=== PATIENT | female | born 1940 | race Caucasian/White ===

== ENCOUNTER 2021-07-28 08:24 | Emergency (ER) | payer OTHER ==
--- OUTSIDE RECORDS SUMMARY | 2021-07-28 08:27 | XMS REPORT | Continuity of Care Document ---
:1940 Author Organization [facility] t Address [address] [place] [address] Care Team Providers Name Role Phone Asked, Pcp Primary Care Physician Unavailable Juanis Saldivar MD Attending Clinician Kaylin Chin MD Attending Clinician Nenita Kay MD Attending Clinician Elly ROJAS Attending Clinician Martha Mendoza Attending Clinician Unavailable Colton RN Attending Clinician Unavailable Sienna Gandhi PA-C Attending Clinician Mishel Attending Clinician [phone] Rashida VALIENTE Attending Clinician Unavailable Provider Attending Clinician YARIEL Admitting Clinician Unavailable Payers Payer Name Policy Type Policy Number Effective Date Expiration Date S ource Problems Condition Condition Condition Status Onset Resolution Last Treating Co mments Source Name Details Category Date Date Treatment Clinician Date Ileus, Ileus, Disease Active Methodi postoperat postoperat 6-24 [facility] walter walter 00:00: Hospita 00 l Acute on Acute on Disease Active Metho di chronic chronic 6-23 st respirator respirator 00:00: Ho spita y failure y failure 00 l with with hypoxia hypoxia 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 Added automatic ally from request for surgery [id number] PMB PMB Disease Active Overview: Method i (postmenop (postmenop 04-[address] ausal ausal 00:00: g of this Hospita bleeding) bleeding) 00 note l might be different from the original. Added automatic ally from request for surgery [id number] Class 3 Class 3 Disease Active Overview: Meth juana severe severe 04-[address] obesity obesity 00:00: g of this Hospi ta due to due to 00 note l excess excess might be calories calories different with with from the serious serious original. comorbidit comorbidit Added y and body y and body automatic mass index mass index ally from (BMI) of (BMI) of request 50.0 to 50.0 to for 59.9 in 59.9 in surgery adult adult [id number] Essential Essential Disease Active Overview: Methodi hypertensi hypertensi 04-[address] on on 00:00: g of this Hospita 00 note l might be different from the original. Added automatic ally from request for surgery [id number] Hypothyroi Hypothyroi Disease Active Overview : Methodi dism dism 04-[address] 00:00: g of this Hospita 00 note l might be different from the original. 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 Added automatic ally from request for surgery [id number] Cyst of Cyst of Disease Active Overview: Meth juana left ovary left ovary 04-[address] 00:00: g of this Hospita 00 note l might be different from the original. Added automatic ally from request for surgery [id number] Pain due Pain due Disease Active 2018-11 Metho di to total to total 12-18 right knee right knee 00:00: Ho spita replacemen replacemen 00 l t t Allergies, Adverse Reactions, Alerts Allergy Allergy Status Severity Reaction(s) Onset Inactive Treating Comm ents Source Name Type Date Date Clinician Clarence Cramer Active Hives Method i in ty to 12-20 st adverse 00:00: Hospita reaction 00 l s to drug Family History Family Member Diagnosis Comments Start Date Stop Date Source Natural father Cancer [facility] Natural father Heart disease [facility] Natural mother Alzheimer's disease [facility] Social History Social Habit Start Date Stop Date Quantity Comments Source Tobacco use and 2021-05-06 2021-05-06 Never used [facility] 00:00:00 00:00:00 Hospital Alcohol intake 2021-05-06 2021-05-06 Lifetime [facility] 00:00:00 00:00:00 non-drinker Hospital (finding) Sex Ass[birth year] At [birth year] F [facility] 00:00:00 00:00:00 [facility] Smoking Status Start Date Stop Date Source Never smoker [facility] Medications Ordered Filled Start Stop Current Ordering Indication Dosage Frequency Signature Comments Components Source Medication Medication Date Date Medication? Clinician (SIG) Name Name diclofenac 2020- No 1{tbl} QD Take 1 Me thodi (VOLTAREN) 05-[address] 50 MG EC 01:28: 00:00 mouth Hospita tablet 56 :00 daily. l CALCIUM Yes Take by Methodi ACETATE [address] ORAL 01:28: Hospita 55 l aspirin Yes 81mg Take 81 mg Meth juana (ECOTRIN) [address] 81 MG 01:28: Hospita enteric 55 l coated tablet vit Yes Q.5D 2 (two) Methodi C/E/Zn/adraina 6-[address] r/lutein/ze 01:28: day. Hospit a axan 55 l (PRESERVISI ON AREDS-2 ORAL) acetaminoph Yes Take by Met hodi en with 05-[address] codeine 01:28: needed. Hospita (TYLENOL-CO 55 l DEINE #3 ORAL) levothyroxi 2020- No 50ug QD Take 1 Met hodi ne 05-13 tablet (50 st (SYNTHROID) 00:00: 04:59 mcg total) Hospita 50 mcg 00 :00 by mouth l tablet daily for 30 days. lisinopriL 2020- No 20mg QD Take 1 Meth juana (PRINIVIL) 05-13 tablet (20 st 20 mg 00:00: 04:59 mg total) Hospit a tablet 00 :00 by mouth l daily for 30 days. polyethylen 2020- No 17g QD Take 17 g Methodi e glycol 05-[address] (MIRALAX) 00:00: 00:00 daily for Ho spita 17 gram 00 :00 30 days. l packet polyethylen 2020- No 17g QD Take 17 g Methodi e glycol 05-[address] (MIRALAX) 00:00: 00:00 daily for Ho spita 17 gram 00 :00 30 days. l packet polyethylen 2020- No 17g QD Take 17 g Methodi e glycol 05-[address] (MIRALAX) 00:00: 00:00 daily for Ho spita 17 gram 00 :00 30 days. l packet lisinopriL 2020- No 20mg QD Take 1 Meth juana (PRINIVIL) 05-13 tablet (20 st 20 mg 00:00: 00:00 mg total) Hospit a tablet 00 :00 by mouth l daily for 30 days. levothyroxi 2020- No 50ug QD Take 1 Met hodi ne 05-13- tablet (50 st (SYNTHROID) 00:00: 00:00 mcg total) Hospita 50 mcg 00 :00 by mouth l tablet daily for 30 days. levothyroxi 2020- No 50ug QD Take 1 Met hodi ne 05-13- tablet (50 st (SYNTHROID) 00:00: 00:00 mcg total) Hospita 50 mcg 00 :00 by mouth l tablet daily for 30 days. lisinopriL 20mg QD Take 1 Meth juana (PRINIVIL) 05-13 tablet (20 st 20 mg 00:00: 00:00 mg total) Hospit a tablet 00 :00 by mouth l daily for 30 days. polyethylen 17g QD Take 17 g Methodi e glycol 05-[address] (MIRALAX) 00:00: 00:00 daily for Ho spita 17 gram 00 :00 30 days. l packet pravastatin No 40mg QD Take 1 Met hodi (PRAVACHOL) 05-12 tablet (40 s t 40 mg 00:00: 04:59 mg total) Hospit a tablet 00 :00 by mouth l nightly for 30 days. pravastatin No 40mg QD Take 1 Met hodi (PRAVACHOL) 05-12 tablet (40 s t 40 mg 00:00: 00:00 mg total) Hospit a tablet 00 :00 by mouth l nightly for 30 days. pravastatin No 40mg QD Take 1 Met hodi (PRAVACHOL) 05-12 tablet (40 s t 40 mg 00:00: 00:00 mg total) Hospit a tablet 00 :00 by mouth l nightly for 30 days. pravastatin No 40mg QD Take 1 Met hodi (PRAVACHOL) 05-12 tablet (40 s t 40 mg 00:00: 00:00 mg total) Hospit a tablet 00 :00 by mouth l nightly for 30 days. vitamins 2020- Take by Metho di A,C,E-zinc- 05-[address] copper 18:53: 00:00 Hospita 14,320-226- 33 :00 l 200 unit-mg-uni t capsule cholecalcif 1000U QD Take 1,000 Methodi dionne, 05-[address] vitamin D3, 18:52: 00:00 mouth Hosp nanci 50 mcg 27 :00 daily. l (2,000 unit) capsule capsule diclofenac- Yes 1{tbl} Q.03819948 Take 1 Methodi misoprostoL 04-[id number] (ARTHROTEC 00:00: 3D mouth 3 Hosp nanci 50) 50-200 00 (three) l mg-mcg EC times a tablet day as needed (pain post-op). traMADol 2018-11- No Methodi (ULTRAM) 50 12-12 05-04 st mg tablet 00:00: 00:00 Hospita 00 :00 l metoprolol 2018-11 Yes 25mg QD Take 25 mg M ethodi succinate 12-[address] XL 00:00: daily. Hospita (TOPROL-XL) 00 l 25 mg 24 hr tablet levothyroxi 2018-11 Yes Method i ne 11-29 st (SYNTHROID) 00:00: Hospit a 50 mcg 00 l tablet pravastatin 2018-11 Yes Method i (PRAVACHOL) 11-21 st 40 MG 00:00: Hospita tablet 00 l lisinopril 2018-11 Yes Methodi (PRINIVIL) 007 st 20 mg 00:00: Hospita tablet 00 l Vital Signs Vital Name Observation Time Observation Value Comments Source Systolic blood 2021-05-12 21:29:21 120 mm[Hg] [facility] pressure Diastolic blood 2021-05-12 21:29:21 58 mm[Hg] [facility] pressure Heart rate 2021-05-12 21:29:21 73 /min [facility] Body temperature 2021-05-12 21:29:21 36.06 [facility] Oxygen saturation in 2021-05-12 21:29:21 97 /min [facility] Arterial blood by Pulse oximetry Respiratory rate 2021-05-12 20:18:00 18 /min [facility] Body weight 2021-05-07 10:16:11 135.172 kg [facility] BMI 2021-05-07 10:16:11 56.31 kg/m2 [facility] Body height 2021-05-04 11:33:00 154.9 cm [facility] Procedures Procedure Date / Time Performing Clinician Source Performed XR CHEST 1 VW PORTABLE 2021-05-12 14:49:29 Lala Valenzuela [facility] XR CHEST 1 VW PORTABLE 2021-05-10 [facility] 2021-05-09 20:52:00 [facility] [place] ESTIMATED GFR 2021-05-09 20:52:00 Tonya Gandhi [facility] [place] HC COMPLETE BLD COUNT 2021-05-09 20:51:00 Tonya Gandhi [facility] W/AUTO DIFF [place] XR ABDOMEN 1 VW 2021-05-08 18:47:59 Tonya Gandhi [facility] [place] XR CHEST 1 PORTABLE 2021-05-08 16:53:13 [facility] COMPLETE [facility]LD [facility] 2021-05-08 10:45:00 Yariel [facility] W/AUTO DIFF COMPREHENSIVE METABOLIC 2021-05-08 10:45:00 Yariel [facility] PANEL ESTIMATED GFR 2021-05-08 10:45:[address] [facility] XR ABDOMEN 1 2021-05-07 18:01:01 Tonya Gandhi [facility]ital [place] XR ABDOMEN 1 2021-05-07 14:09:45 Tonya Gandhi [facility] [place] [facility] ANGIOGRAM PE CHEST 2021-05-06 [facility] 2021-05-06 14:45:00 Yariel [facility] HC COMPLETE BLD COUNT 2021-05-06 14:43:00 Yariel [facility] W/AUTO DIFF COMPREHENSIVE METABOLIC 2021-05-06 14:43:00 [facility]FR 2021-05-06 [facility]:43[facility] 2021-05-04 16:36:00 Yariel [facility] FL AN ELECTIVE ENDOTRACHEAL 2021-05-04 13:07:00 Melinda Kay [facility] AIRWAY XI ROBOTIC ASSISTED 2021-05-04 12:46:[address] [facility] LAPAROSCOPIC HYSTERCETOMY W/ BSO XI ROBOTIC ASSISTED 2021-05-04 12:46:00 Simi Chin [facility] LAPAROSCOPIC VENTRAL HERNIA Kaylin ABO AND RH CONFIRMATION 2021-05-04 12:00:00 Yariel [facility] POC GLUCOSE 2021-05-04 11:53:[address] [facility] ECG PRE/POST OP 2021-05-01 19:29:25 Ervin Sanabriasse [facility] ospital TYPE AND SCREEN 2021-05-01 18:42:[address] [facility] COMPREHENSIVE METABOLIC 2021-05-01 18:42:00 Yariel [facility] PANEL HC COMPLETE BLD COUNT 2021-05-01 18:42:00 Yariel [facility] W/AUTO DIFF HEMOGLOBIN A1C 2021-05-01 18:42:00 Natasha Sanabria [facility] ospital ESTIMATED GFR 2021-05-01 18:42:[address] [facility] CARCINOEMBRYONIC ANTIGEN 2021-03-30 15:04:00 Tonya Gandhi [facility] ([facility] [place] CANCER ANTIGEN 125 2021-03-30 15:04:00 Oksana [facility] CT CHEST WO CONTRAST 2021-03-26 00:00:00 Tonya Gandhi [facility] MAMMO EXTERNAL STUDY 2021-03-24 14:20:00 Provider, Historical [facility] SURGICAL PATHOLOGY REQUEST 2021-03-17 18:29:00 Oksana [facility] MISCELLANEOUS REFERRAL TEST 2021-03-17 17:00:00 Liz Castanon [facility] CT ABDOMEN PELVIS W 2021-02-25 00:00:00 Provider, [facility] CONTRAST Plan of Care Planned Activity Planned Date Details Comments Source Future Scheduled Test Hepatitis C screening [facility] (procedure) [code = 452604781] Future Scheduled Test SHINGLES VACCINES (#1) [facility] [code = SHINGLES VACCINES (#1)] Future Scheduled Test 65+ PNEUMOCOCCAL [facility] VACCINE (1 of 1 - PPSV23) [code = 65+ PNEUMOCOCCAL VACCINE (1 of 1 - PPSV23)] Future Scheduled Test INFLUENZA VACCINE [code [facility] = INFLUENZA VACCINE] Encounters Start End Encounter Admission Attending Care Care Encounter Source Date/Time Date/Time Type Type Clinicians Facility Department ID 2021-06-09 2021-06-09 Telephone Yariel 1.2.840.1 [id number] Methodi 00:00:00 00:00:[address] [facility] 3.430.2.7 Hospit a .3.271208 l .8 2021-06-03 2021-06-03 Telephone Giuseppe 1.2.840.1 [id number] Methodi 14:25:04 15:01:20 Consult Simi 61161.1.[address] Kaylin 3.430.2.7 Hospit a .3.270310 l .8 2021-06-03 2021-06-03 Travel 1.2.840.1 1.2.643.867 [id number] Methodi 00:00:00 00:00:[address] 3.430.2.7 0.2.7.3.698 Ho spita .3.203631 084.8 l .8 2021-06-03 2021-06-03 Outpatient [facility] [id number] [address] [place] 00:00:00 00:00:00 SIMI [address] 2021-06-01 2021-06-01 Telephone Yariel 1.2.840.1 [id number] 2099 [id number] Methodi 00:00:00 00:00:[address] Mohamed 3.430.2.7 Hospit a .3.077778 l .8 2021-05-19 2021-05-19 Telephone Yariel 1.2.840.1 [id number] 2099 [id number] Methodi 00:00:00 00:00:[address] [facility] 3.430.2.7 Hospit a .3.440624 l .8 2021-05-04 2021-05-12 [facility], 1.2.840.1 [id number] Methodi 05:40:00 20:10:00 Encounter Tarrik 91808.1.[address] [facility] 3.430.2.7 Hospit a .3.411480 l .8 2021-05-04 2021-05-12 Inpatient [facility] 021 [id number] [place] 00:00:00 00:00:[address] 2021-05-04 2021-05-04 Anesthesia Melinda Kay Nenita 1.2.840.1 [id number] Methodi 07:45:00 13:10:00 Event Natasha Sanabria 03775.1.[address] 3.430.2.7 Hospit a .3.965938 l .8 2021-05-04 2021-05-04 Surgery [facility], 1.2.840.1 [id number] Methodi 07:45:00 11:25:[address] [facility] 3.430.2.7 Hospit a .3.020276 l .8 2021-05-01 2021-05-01 Pre-Admiss [facility], 1.2.840.1 [id number] Methodi 13:22:34 14:22:34 ion Tarrik 49215.1.[address] Testing Mohamed 3.430.2.7 Hospit a .3.768870 l .8 2021-05-01 2021-05-01 Travel 1.2.840.1 1.2.285.264 [id number] [id number] Methodi 00:00:00 00:00:[address] 3.430.2.7 0.2.7.3.698 Ho spita .3.927145 084.8 l .8 2021-05-01 2021-05-01 [facility]patient [facility] [id number] [address] [place] 00:00:00 00:00:00 TARRIK [address] 2021-04-30 2021-04-30 Prep for Reji, 1.2.840.1 [id number] Methodi 00:00:00 00:00:00 Surgery Frannie Thomas 67156.1.1 [address] 3.430.2.7 Hospit a .3.343572 l .8 2021-04-29 2021-04-29 Telephone Segura, 1.2.840.1 [id number] 2099 [id number] Methodi 00:00:00 00:00:[address] 3.430.2.7 Hospit a .3.034241 l .8 2021-04-29 2021-04-29 Prep for Reji, 1.2.840.1 [id number] Methodi 00:00:00 00:00:00 Surgery Frannie Thomas 67409.1.1 072 s t 3.430.2.7 Hospit a .3.334833 l .8 2021-04-28 2021-04-28 Office Chin, 1.2.840.1 [id number] Methodi 13:06:02 14:02:10 Visit Simi 13131.1.[address] [place]lin 3.430.2.7 Hospit a .3.635642 l .8 2021-04-28 2021-04-28 Travel 1.2.840.1 1.2.114.814 6388 [id number] Methodi 00:00:00 00:00:[address] 3.430.2.7 0.2.7.3.698 Ho spita .3.531283 084.8 l .8 2021-04-28 2021-04-28 Outpatient CHIN, [facility] [id number] [place] 00:00:00 00:00:[address] SIMI [address] 2021-04-24 2021-04-24 Hospital Yariel, 1.2.840.1 [id number] Methodi 13:23:34 23:59:00 Encounter Tarrik 31711.1.[address] [facility] 3.430.2.7 Hospit a .3.501730 l .8 2021-04-24 2021-04-24 Outpatient YARIEL, [facility] [id number] [address] [place] 00:00:00 00:00:00 TARRIK [address] 2021-04-22 2021-04-22 [facility], 1.2.840.1 [id number] Methodi 16:19:33 23:59:00 Encounter Tarrik 75403.1.[address] [facility] 3.430.2.7 Hospit a .3.198433 l .8 2021-04-22 2021-04-22 [facility], 1.2.840.1 [id number] Methodi 16:07:01 16:18:00 Encounter Tarrik [address]2100.1.[address] [facility] 3.430.2.7 Hospit a .3.632411 l .8 2021-04-22 2021-04-22 Clinical Yariel, 1.2.840.1 [id number] Methodi 14:53:28 16:08:29 Support Tarrik 83413.1.[address] [facility] 3.430.2.7 Hospit a .3.215052 l .8 2021-04-22 2021-04-22 Travel 1.2.840.1 1.2.032.014 [id number] [id number] Methodi 00:00:00 00:00:[address] 3.430.2.7 0.2.7.3.698 Ho spita .3.586568 084.8 l .8 2021-04-22 2021-04-22 [facility] [id number] [place] 00:00:00 00:00:00 TARRIK [address] 2021-04-22 2021-04-22 [facility] [id number] [place] 00:00:00 00:00:[address] TARRI[address] 2021-04-22 2021-04-22 Outpatient [facility], [facility] [id number] [address] [place] 00:00:00 00:00:00 TARRIK [address] 2021-04-15 2021-04-15 Prep for Colton, 1.2.840.1 [id number] Methodi 00:00:00 00:00:00 Surgery Shannan 69733.1.[address] 3.430.2.7 Hospit a .3.329443 l .8 2021-03-31 2021-03-31 Telephone Oksana, 1.2.840.1 [id number] 2099 [id number] Methodi 00:00:00 00:00:[address] [place] 3.430.2.7 Hosp nanci .3.488738 l .8 2021-03-30 2021-03-30 Outpatient Florentino, [facility] [id number] c-2 00:00:00 00:00:00 Saira [id number]-bdce-4 [id number] 958C30 2021-03-30 2021-03-30 Outpatient Florentino, [facility] [id number] a-d 00:00:00 00:00:00 Saira [id number] 2021-03-30 2021-03-30 Outpatient Florentino, [facility] [id number] 6-2 00:00:00 00:00:00 Saira [id number] 958C30 2021-03-27 2021-03-27 Telephone Segura, 1.2.840.1 [id number] Methodi 00:00:00 00:00:[address] 3.430.2.7 Hospit a .3.666838 l .8 2021-03-24 2021-03-24 Telephone Segura, 1.2.840.1 [id number] 2099 [id number] Methodi 00:00:00 00:00:[address] 3.430.2.7 Hospit a .3.758152 l .8 2021-03-24 2021-03-24 Telephone Yariel 1.2.840.1 [id number] Methodi 00:00:00 00:00:00 Macro Aribianca 40942.1.[address] [place] 3.430.2.7 Hospit a .3.144345 l .8 2021-03-24 2021-03-24 Abstract Oksana, 1.2.840.1 [id number] Methodi 00:00:00 00:00:[address] [place] 3.430.2.7 Hosp nanci .3.469263 l .8 2021-03-23 2021-03-23 Orders Oksana, 1.2.840.1 [id number] Methodi 00:00:00 00:00:00 Only Tonya 07812.1.[address] [place] 3.430.2.7 Hosp nanci .3.640200 l .8 2021-03-17 2021-03-17 Office Oksana 1.2.840.1 [id number] Methodi 11:05:45 15:08:53 Visit Tonya 67286.1.[address] [place] 3.430.2.7 Hosp nanci .3.582299 l .8 2021-03-17 2021-03-17 Lab Tonya Gandhi 1.2.840.1 [id number] Methodi 13:15:17 13:20:17 Simon Saldivar 45240.1.[address] 3.430.2.7 Hospit a .3.075540 l .8 2021-03-17 2021-03-17 [facility] [id number] [place] 00:00:00 00:00:[address] TONYA [address] 2021-03-17 2021-03-17 Travel 1.2.840.1 1.2.194.469 [id number] Methodi 00:00:00 00:00:[address] 3.430.2.7 0.2.7.3.698 spita .3.605327 084.8 l .8 2021-03-17 2021-03-17 Outpatient OKSANA, [facility] [id number] [address] [place] [address] 00:00:00 00:00:00 TONYA [address] 2021-03-13 2021-03-13 Telephone Yessi Field 1.2.840.1 [id number] Methodi 00:00:00 00:00:[address] 3.430.2.7 Hospit a .3.565167 l .8 2021-03-12 2021-03-12 Outpatient [facility] [id number] 9-2 00:00:00 00:00:00 Saira [id number] 958C30 2021-02-25 2021-02-25 Orders Provider, 1.2.840.1 [id number] Methodi 00:00:00 00:00:00 Only Historical 17353.1.1 184 s t 3.430.2.7 Hospit a .3.683683 l .8 2021-02-16 2021-02-16 Outpatient [facility] [id number] b-2 00:00:00 00:00:00 Saira [id number] 958C30 2021-02-04 2021-02-04 Outpatient [facility] [id number] 5-2 00:00:00 00:00:00 Saira [id number] 958C30 2020-11-10 2020[facility]11-10 [facility] [id number] [facility] 2020-09-10 2020-09-10 [facility] [id number] [facility] 2020-08-11 2020-08-11 [facility] [id number] [facility] Results Test Description Test Time Test Comments Results Result Comments Source Surgical pathology request 2021-05-14 20:00:00 Test Item Value Reference Range Interpretation Comme nts Case number (test code = 8745910) [id number] Surgical pathology report (test code = See link below for PDF Lab R eport 2251) Result status (test code = 2253846) This is Final Report for [id number] [id number] 15:29:16 Examination: XR CHEST 1 VW PORTABLE Clinical history: sob Comparison: 05/10/2021 IMPRESSION: Minimal bilateral lower lung atelectasis appears unchanged. No pneumothoraces are identified. There are no apparent pleural effusions. The cardiomediastinal silhouette and the remainder of the chest appear essentially unchanged. [id number] Interface, Radiology Results 05/12/2021 10:32 AM CDT Examination: XR CHEST 1 PORTABLEClinical history: sobComparison: 05/10/2021IMPRESSION: Minimal bilateral lower lung atelectasis appears unchanged. No pneumothoraces are identified. There are no apparent pleural effusions.The cardiomediastinal silhouette and the remainder of the chest appear essentially unchanged.[id number]domen 1 [id number] 20:56:34 EXAMINATION: XR ABDOMEN 1 CLINICAL HISTORY: post op ileus COMPARISON: None. IMPRESSION: Improving gaseous distention of the stomach and colon consistent with improving ileus. There are residual gaseous distended and mildly dilated loops of colon measuring up to 8 cm in diameter. [id number]-[id number] Interface, Radiology Results 05/08/2021 3:59 PM CDT EXAMINATION: XR ABDOMEN 1 CLINICAL HISTORY: post op ileusCOMPARISON: None.IMPRESSION: Improving gaseous distention of the stomach and colon consistent with improving ileus. There are residual gaseous distended and mildly dilated loops of colon measuring up to 8 cm in diameter.[facility]-[id number] HospitalCT Angiogram Pe Chest 2021-05-06 16:07:22EXAMINATION: CT ANGIOGRAM PE CHEST HISTORY: Respiratory failure () TECHNIQUE: CT angiogram of the chest were performed following intravenous administration of iodinated contrast. Computerized reformatted images and 3-D MIP images were also obtained and archived (CT pulmonary embolus protocol).CT imaging was performed with iterative reconstruction techniques and/or automated exposure control to reduce radiation dose. COMPARISON: Outside CT dated 03/26/2021. CTA FINDINGS: Study quality moderately diminished by suboptimal contrast bolus timing and motion artifact. No pulmonary embolism to level of segmental arteries. There are a few questionable filling defects in the subsegmental vessels which cannot be distinguished from artifact (e.g. apical RUL, series 5, image 41). OTHER : Pulmonary:Patient is imaged in expiration. No pneumonia or focal suspicious lesion. Symmetric patchy mosaic attenuation in central distribution. Minimal septal line thickening. More substantial mild atelectasis related to effusions. Pleural: Trace bilateral effusions. No nodularity. No pneumothorax.. Cardiovascular: Upper limit of normal size. No pericardial effusion. Moderate calcified CAD. Mild mitral annular calcification. Mild calcification of the greater thoracic vasculature. No thoracic aortic aneurysm.Mediastinum/Nodes: No thoracic lymphadenopathy. Thickened thoracic esophagus. Musculoskeletal: No acute or aggressive-appearing osseous lesion. Multilevel degenerative spinal change and advanced shoulder arthropathy.. Upper abdomen: Borderline hepatic steatosis. = = = = = = = = = = = = = = = = = = = == = = = = = = = = IMPRESSION: 1.Technically limited study.2.No pulmonary embolism to the level of the segmental vessels.3.Nonspecific faint lung opacities which may be physiologic (patient in expiration) versus early pulmonary edema.4.Trace pleural effusions and associated mild atelectasis.5.Thickened appearance of esophagus, may correspond to esophagitis. [id number] Interface, Radiology Results Incoming - 05/06/2021 11:10 AM CDT EXAMINATION: CT ANGIOGRAM PE CHESTHISTORY: Respiratory failure () TECHNIQUE: CT angiogram of the chest were performed following intravenous administration of iodinated contrast. Computerized reformatted images and 3-D MIP images were also obtained and archived (CT pulmonary embolus protocol). CT imaging was performed with iterative reconstruction techniques and/or automated exposure control toreduce radiation dose.COMPARISON: Outside CT dated 03/26/2021.CTA FINDINGS: Study quality moderatelydiminished by suboptimal contrast bolus timing and motion artifact. No pulmonary embolism to level of segmental arteries. There are a few questionable filling defects in the subsegmental vessels which cannot be distinguished from artifact (e.g. apical RUL, series 5, image 41).OTHER : Pulmonary: Patient is imaged in expiration. No pneumonia or focal suspicious lesion. Symmetric patchy mosaic attenuation in central distribution. Minimal septal line thickening. More substantial mild atelectasis related to effusions.Pleural: Trace bilateral effusions. No nodularity. No pneumothorax..Cardiovascular: Upper limit of normal size. No pericardial effusion. Moderate calcified CAD. Mild mitral annular calcification. Mild calcification of the greater thoracic vasculature. No thoracic aortic aneurysm.Mediastinum/Nodes: No thoracic lymphadenopathy. Thickened thoracic esophagus.Musculoskeletal: No acute or aggressive-appearing osseous lesion. Multilevel degenerative spinal change and advanced shoulder arthropathy..Upper abdomen: Borderline hepatic steatosis.= = = = = = = = = = = = = = = = = = = = = = = = = == = =IMPRESSION: 1.Technically limited study.2.No pulmonary embolism to the level of the segmental vessels.3.Nonspecific faint lung opacities which may be physiologic (patient in expiration) versus early pulmonary edema.4.Trace pleural effusions and associated mild atelectasis.5.Thickened appearance of esophagus, may correspond to esophagitis.[facility] [place]-[id number] HospitalAirway 2021-05-04 13:07:00Melinda Kay MD 05/04/2021 9:03 AMAirway Date/Time: 05/04/2021 8:07 AM Location: OR Performed by: anesthesiologistAnesthesiologist: Melinda Kay MDAuthorized by: Melinda Kay MD Urgency: ElectiveDifficult Airway: No Preoxygenated with 100% O2: Yes C-spine Precautions Maintained Throughout: Yes Mask Ventilation: Easy maskFinal Airway Type: Endotracheal airwayFinal Endotracheal Airway: ETTCuffed: Yes Technique Used: Direct laryngoscopyInsertion Site: OralBlade Type:MillerLaryngoscope Blade/Videolaryngoscope Blade Size: 2ETT Size (mm): 7.0Cuff at minimum occlusion pressure: Yes Measured from: LipsETT to Lips (cm): 22Placement Verified by: CO2 detection and direct visualization Laryngoscopic view: Grade IIa - partial view of glottisRapid Sequence Induction (RSI): No Modified RSI: No Number of Attempts at Approach: 1[facility] confirmation 2021-05-04 12:38:00 Test Item Value Reference Range Interpretation Comments ABO grouping (test code = 883-9) B Rh type (test code = 71374-0) POS [facility] [id number] 12:04:41 Test Item Value Reference Range Interpretation Comments POC glucose (test code 118 mg/dL 65-99 H Opera tor Name: = 31006-8) Arpita Mathis ID : [id number] able: RN Notified Lab Interpretation Abnormal (test code = 93717-1) [facility]/Post [id number] 17:51:44 Test Item Value Reference Range Interpretation Comments Ventricular rate (test code = 253) Atrial rate (test code = 255) FL interval (test code = 266) QRSD interval (test code = 260) QT interval (test code = 264) QTC interval (test code = 265) P axis 1 (test code = 267) QRS axis 1 (test code = 268) T wave axis (test code = 270) EKG impression (test Normal sinus code = 273) rhythm-Incomplete right bundle branch block-Left anterior fascicular block-Abnormal ECG-No previous ECGs available-Electronical ly Signed By Jc HOWE, Sylvia ([id number]) on 05/03/2021 12:51:42 PM [facility]Type and [id number] 21:33:00 Test Item Value Reference Range Interpretation Comments ABO grouping (test code = 883-9) B Rh type (test code = 68391-1) POS Antibody screen (gel) (test code = NEG 890-4) [facility] CenterMiscellaneous referral [id number] 18:53:46 Test Item Value Reference Range Interpretation Comments Misc test name ARUP MLH1 PROMOTER (test code = 2566) Misc test SEE COMMENT MLH1 Promoter result (test Methylation, Pa raffin code = 1730) [facility] test code 2164620 MLH1 Promoter Methylation 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 T his result has been reviewed and ap proved by Marie martinez M.D. TEST INFOR MATION: MLH1 Promoter Methylation, Ramez pabon MLH1 methylatio n is common in spora dic microsatellite unstable tumors , like colorectal canc er and endometrial can cer, and rarely occu rs in Eric syndrome (hereditary non-polyposis c olon cancer or HNPCC ). Therefore, the presence of MLH 1 methylation sug gests that the tumor is sporadic and no t associated with Eric syndrome. Howev er, since there hav e been rare reports of Eric syndrome-associ ated MLH1 methylatio n, all results should be interpreted wit hin the clinical contex t. The lack of MLH1 methylation in a mismatch repair deficient tumor suggests that i t may be associated w ith Eric syndrome, and germline evalua tion is suggested. Fin ally, low level MLH1 methylation is not reported as pos itive, since it does n ot correlate with MLH1 inactivation an d microsatellite instability. METHODOLOGY: DN A is isolated from t umor tissue microdis sected from prepared s lides. DNA is treated with sodium bisulfit e, followed by amplification o f a segment of the MLH1 promoter region using methylation spe cific real-time PCR. The MLH1 methylatio n level is calculated b y comparison to t he amplification o f a reference gene. LIMITATIONS: Methylation at locations other than those covered b y the primers and pro bes will not be det ected. Results of this test must always be interpreted wit hin the clinical contex t and other relevant data, and should not be used alone for a monalisa gnosis of malignancy. This test is not int ended to detect minim al residual diseas e. ANALYTICAL SENSITIVITY: Methylation lev els below 10 percen t are reported as neg ative. This test was developed and i ts performance characteristics determined by [facility] [employer]. I t has not been cleare d or approved by the [place] Food and Drug Administration. This test was perfor med in a CLIA certifie d laboratory and is intended for cl inical purposes. - - - - - - - - - - - - - - - - - - - - - - - - - - - - - - Block ID [id number] A2 - - - - - - - - - - - - - - - - - - - -Order commentsMLH1 Pr omoter Methylation, Paraffin-ENDOME TRIAL BIOPSYARUP TEST #[id number] MLH1 P ROMOTER METHYLATION, [id number] (A2)DOS 021 ======= ======= Test performed by:[address] 841 08 LUCI (test code -ENDOMETRIAL = LUCI) BIOPSYARUP TEST #[id number] MLH1 PROMOTER METHYLATION, [id number] (A2)DOS 03/17/2021 [facility] HospitalCarcinoembryonic antigen (CEA)2021-03-31 17:54:00 Test Item Value Reference Range Interpretation Comments CEA (test 1.9 ng/mL See Note: Reference Range : code = Non-Smoker: <2. 5Smoker: 2038-6) <5.0 This test was performed using the Siemens chemiluminescen t method. Values obtained fromdifferent a ssay methods cannot be usedinterchange ably. CEA levels, reg ardless ofvalue, should not be interpreted as absoluteevidenc e of the presence or abs ence of disease. LUCI (test FASTING:YES code = LUCI) FASTING: YES RAC (test Performing code = RAC) Organization Information: Site ID: [id number] [facility] Address: [address] [place] [address] Director: Kvng Ludwig [facility] FallsCancer antigen [id number] 17:54:00 Test Item Value Reference Interpretation Comments Range CA 125 14 U/mL <35 This test was performed (test code using the [facility] an = 19723-9) CoulterChemilum inescent method. Values obtained fromdifferent a ssay methods cannot be usedinterchange ably. CA 125 levels, regardl ess ofvalue, should not be i nterpreted as absoluteevidenc e of the presence or abs ence of disease. LUCI (test FASTING:YES code = FASTING: YES LUCI) RAC (test Performing code = Organization RAC) Information: Site ID: [id number] [facility] Address: [address] [place] [address] Director: Dr. Kvng Ludwig [facility]
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
[2021-07-28 18:32] VITALS: BP 161/62; TEMP 98.1
[2021-07-28 18:34] VITALS: O2SAT 98
== END 2021-07-28 17:39 | disposition home or self-care (01) ==
LOC: ER 08:24
DX: R09.02 Hypoxemia (principal); E66.9 Obesity, unspecified; I10 Essential (primary) hypertension; Z99.81 Dependence on supplemental oxygen
CPT/HCPCS: 99283

== ENCOUNTER → 2023-11-10 | Emergency (ER) | payer OTHER ==
[~2023-11-10] MED LIST: NA CHLORIDE 0.9% 500 ML ONE; PANTOPRAZOLE 40 MG INJ ONE; SMZ./TMP. 800/160 MG TABLET ONE
[2023-11-10 11:55] LABS: Absolute Lymphocytes (CBC) 0.9 K/uL (0.7-4.9); Hematocrit 38.1 % (36.0-45.0); Lymphocytes % 7.3 % (15.3-44.8); MCV 86.6 fL (80-100); MPV 7.3 fL (7.6-11.3); Platelets 314 thou/uL (152-406)
[2023-11-10 12:41] LABS: Albumin 2.7 g/dL (3.4-5.0); Bilirubin Total 0.3 mg/dL (0.2-1.0); Potassium 3.6 mEq/L (3.5-5.1); Protein, Total 7.3 g/dL (6.4-8.2)
--- NOTE | 2023-11-10 13:22 | RAD REPORT ---
EXAM DESCRIPTION: CTAbdomen Pelvis W Contrast - 11/10/2023 1:07 pm CLINICAL HISTORY: ABD PAIN COMPARISON: No comparisons TECHNIQUE: CT of the abdomen and pelvis was performed. All CT scans are performed using dose optimization technique as appropriate and may include automated exposure control or mA/KV adjustment according to patient size. FINDINGS: Lower chest: Mosaic lung attenuation the lung bases . Coronary artery calcifications. Card iomegaly. Liver: Mild intrahepatic biliary duct dilatation. Focal fat along the falciform ligament. No suspicio us liver masses. Biliary: Cholecystectomy. Extrahepatic biliary duct dilatation is likely related to the postcholecyst ectomy state. Stomach: No significant focal abnormality. Duodenum: No significant focal abnormality. Pancreas: No significant abnormality. Spleen: No significant abnormality. Adrenal: No suspicious lesions. Kidney/ureter: No hydronephrosis. No renal calculi. Retroperitoneum: No retroperitoneal adenopathy. Vascular: No aneurysm. Bowel: Mild to moderate formed stool within the colon. Diverticulosis is present. There is some inspi ssated stool in the sigmoid with mild hyperemia of the sigmoid mesocolon.. The rectal wall is mildly thickened. Peritoneum: No ascites or free air. Bladder: Grossly unremarkable. Reproductive: Hysterectomy Bones: No acute fracture. Anterolisthesis of L4 on L5. Other: n/a IMPRESSION: Suspected colitis at the sigmoid colon and rectum. Probable constipation.
--- NOTE | 2023-11-10 13:31 | EDPHYS ---
Physician Documentation [facility] Name: Jennifer Blake Age: 82 yrs Sex: Female : 1940 Arrival Date: 11/10/2023 Time: 10:49 Bed [id number] Private MD: ED Physician Vazquez Solomon HPI: 11/10 11:04 This 82 yrs old Female presents to ER via EMS with complaints of rectal ec2 bleeding. 11:04 Patient arrives today for evaluation of rectal bleeding. Patient reports that she had ec2 woken up and noted blood on the sheets. Patient reports some abdominal pain, no nausea or vomiting. Reports no history of hemorrhoids, denies any history of rectal bleeding. Denies any liver pathology. Patient reports no straining with bowel movements. Patient denies any urinary complaints.. Historical: - Allergies: 11:04 PENICILLINS; ph - PMHx: 11:04 home O2; Hypercholesterolemia; Hypertensive disorder; Thyroid problem; ph - Immunization history:: Adult Immunizations unknown. - Social history:: Smoking status: Patient denies any tobacco usage or history of. ROS: 11:04 Constitutional: as per hpi ec2 Exam: 11:04 Constitutional: GEN: NAD Head: atraumatic Eyes: EOMI Ears: External ears are ec2 normal. CV: regular rate LUNGS: no respiratory distress ABD: non-distended, obese, nontender, no guarding, nonrigid. : Soft brown stool noted. SKIN: no evidence of rashes MSK: no evidence of trauma NEURO: moves all extremities equally Vital Signs: 11:01 BP 127 / 71; Pulse 61; Resp 18; Temp 97.8; Pulse Ox 94% on R/A; Weight 147.42 kg; ph Height 5 ft. 1 in. ; Pain 5/10; 14:17 BP 118 / 79; Pulse 61; Resp 18; Temp 97.1; Pulse Ox 96% on R/A; ph 11:01 Body Mass Index 61.41 (147.42 kg, 154.94 cm) ph 11:01 Pain Scale: Adult ph MDM: 11:01 Patient medically screened. ec2 11:04 Data reviewed: vital signs. ED course: Patient arrives today for evaluation of blood on ec2 the sheets when she woke up. Examination remarkable for well-appearing nontoxic individual is in no acute distress who has a minimally tender abdomen on examination. Will obtain lab work, give the patient Protonix, obtain CT imaging. Currently considering process such as GI bleeding, intra-abdominal infection, UTI.. 12:49 ED course: Metabolic profile is reassuring. Lipase within normal ranges. . ec2 13:23 ED course: CT imaging shows colitis, this is likely the source of patient's rectal ec2 bleeding. Patient is otherwise hemodynamically stable with appropriate blood counts. I will discharge her to home and follow-up with a GI doctor. . 11/10 11:02 Order name: CBC with Diff; Complete Time: 12:13 ec2 11/10 11:02 Order name: CMP; Complete Time: 12:49 ec2 11/10 11:02 Order name: Lipase; Complete Time: 12:49 ec2 11/10 11:02 Order name: CT Abd/Pelvis - IV Contrast Only; Complete Time: 13:23 ec2 11/10 11:02 Order name: IV Saline Lock; Complete Time: 11:57 ec2 11/10 11:02 Order name: Labs collected and sent; Complete Time: 11:57 ec2 11/10 12:03 Order name: Labs - recollect needed: Lt green; Complete Time: 12:31 bc6 Administered Medications: 13:37 Not Given (Other Intervention Used): ns 0.9% 1000 ml IV at 1 bolus Per protocol; 1000 ph mL bolus 13:37 Not Given (Other Intervention Used): mg IVP once ph 13:46 Drug: Trimethoprim-Sulfamethoxazole PO (160 mg-800 mg (DS) 1 tablet PO once Route: PO; ph 14:20 Follow up: Response: No adverse reaction ph Disposition Summary: 11/10/23 13:31 Discharge Ordered Notes: Location: Home ec2 Condition: Stable ec2 Diagnosis - Left sided colitis ec2 Followup: ec2 - With: Private Physician - When: - Reason: Recheck today's complaints Discharge Instructions: - Discharge Summary Sheet ec2 - Colitis ec2 Forms: - Medication Reconciliation Form ec2 - Thank You Letter ec2 - Antibiotic Education ec2 - Prescription Opioid Use ec2 - Patient Portal Instructions ec2 - Leadership Thank You Letter ec2 Prescriptions: - Bactrim DS 800-160 mg Oral tablet - take 1 tablet ORAL route every 12 hours for 5 days; 10 tablet; Refills: 0, ec2 Product Selection Permitted Signatures: Dispatcher [employer] Nani Terrell RN RN Isela Mejia 6 Vazquez Solomon MD MD ec2 Corrections: (The following items were deleted from the chart) 11:08 11:04 Allergies: No Known Allergies; ph
--- NOTE | 2023-11-10 13:31 | ER ---
Nurse's Notes [facility] Name: Jennifer Blake Age: 82 yrs Sex: Female : 1940 Arrival Date: 11/10/2023 Time: 10:49 Bed IW10 Private MD: Diagnosis: Left sided colitis Presentation: 11/10 11:01 Chief complaint: EMS states: From [facility], pt woke this morning ph w/ bloody stool in her bed, has had diarrhea for approx 3 days, c/o abdominal pain, worse in RLQ, denies N/V or dizziness, VSS. Coronavirus screen: Vaccine status: Patient reports receiving the 1st dose of the Covid vaccine. Ebola Screen: No symptoms or risks identified at this time. Initial Sepsis Screen: Does the patient meet any 2 criteria? No. Patient's initial sepsis screen is negative. Does the patient have a suspected source of infection? No. Patient's initial sepsis screen is negative. Risk Assessment: Do you want to hurt yourself or someone else? Patient reports no desire to harm self or others. Onset of symptoms was November 10, 2023. 11:01 Method Of Arrival: EMS: [facility] ph 11:01 Acuity: MARIAH 3 ph Historical: - Allergies: 11:04 PENICILLINS; ph - PMHx: 11:04 home O2; Hypercholesterolemia; Hypertensive disorder; Thyroid problem; ph - Immunization history:: Adult Immunizations unknown. - Social history:: Smoking status: Patient denies any tobacco usage or history of. Screenin:04 [facility] ED Fall Risk Assessment (Adult) History of falling in the last 3 months, ph including since admission No falls in past 3 months (0 pts) Confusion or Disorientation No (0 pts) Intoxicated or Sedated No (0 pts) Impaired Gait Yes (1 pt) Mobility Assist Device Used Yes (1 pt) Altered Elimination Yes (1 pt) Score/Fall Risk Level 3 or more points = High Risk Oriented to surroundings, Maintained a safe environment, Provided non-skid footwear, Hourly rounding (assess needs \T\ fall precautionary measures) done, Used ambulatory aids as needed (educated on \T\ assisted with). Abuse screen: Denies threats or abuse. Denies injuries from another. Nutritional screening: No deficits noted. Tuberculosis screening: No symptoms or risk factors identified. Assessment: 11:58 General: Appears in no apparent distress. comfortable, obese, well groomed, Behavior is ph calm, cooperative, appropriate for age, Denies fever. Pain: Complains of pain in right upper quadrant, left upper quadrant and right lower quadrant. Neuro: Level of Consciousness is awake, alert, obeys commands, Oriented to person, place, time, situation. Cardiovascular: Capillary refill < 3 seconds in bilateral fingers Patient's skin is warm and dry. Respiratory: Airway is patent Respiratory effort is even, unlabored, Respiratory pattern is regular, symmetrical. GI: Abdomen is obese, Reports lower abdominal pain, upper abdominal pain, diarrhea, Patient currently denies nausea, vomiting. : No signs and/or symptoms were reported regarding the genitourinary system. Derm: Skin is fragile, is thin, Skin is pink, warm \T\ dry. Musculoskeletal: Circulation, motion, and sensation intact. Range of motion: intact in all extremities. 13:54 Reassessment: Report called to [facility] en route to transport pt hb home. Vital Signs: 11:01 BP 127 / 71; Pulse 61; Resp 18; Temp 97.8; Pulse Ox 94% on R/A; Weight 147.42 kg; ph Height 5 ft. 1 in. ; Pain 5/10; 14:17 BP 118 / 79; Pulse 61; Resp 18; Temp 97.1; Pulse Ox 96% on R/A; ph 11:01 Body Mass Index 61.41 (147.42 kg, 154.94 cm) ph 11:01 Pain Scale: Adult ph ED Course: 10:58 Patient arrived in ED. mr 11:01 Vazquez Solomon MD is Attending Physician. ec2 11:01 Nani Aragon, ROCCO is Primary Nurse. ph 11:04 Triage completed. ph 11:09 Arm band placed on Patient placed in an exam room, on a stretcher, on maintenance worker swimming pool, ph on pulse oximetry. 11:09 Patient has correct armband on for positive identification. Bed in low position. Call ph light in reach. Side rails up X 1. Door closed. Noise minimized. Warm blanket given. 11:57 CMP Sent. ph 11:57 Lipase Sent. ph 11:57 Initial lab(s) drawn, by me, sent to lab. Inserted saline lock: 22 gauge in right ph forearm, using aseptic technique. Blood collected. 13:09 CT Abd/Pelvis - IV Contrast Only In Process Unspecified. EDMS 14:17 No provider procedures requiring assistance completed. IV discontinued, intact, ph bleeding controlled, No redness/swelling at site. Pressure dressing applied. Administered Medications: 13:37 Not Given (Other Intervention Used): ns 0.9% 1000 ml IV at 1 bolus Per protocol; 1000 ph mL bolus 13:37 Not Given (Other Intervention Used): [id number] mg IVP once ph 13:46 Drug: Trimethoprim-Sulfamethoxazole PO (160 mg-800 mg (DS) 1 tablet PO once Route: PO; ph 14:20 Follow up: Response: No adverse reaction ph Medication: 11:09 VIS not applicable for this client. ph Outcome: 13:31 Discharge ordered by . ec2 14:17 Discharged to home via ambulance, ph 14:17 Condition: good 14:17 Discharge instructions given to patient, Instructed on discharge instructions, follow up and referral plans. medication usage, Demonstrated understanding of instructions, follow-up care, medications, Prescriptions given X 1, 14:18 Patient left the ED. ph Signatures: Dispatcher [employer] EDMS Nenita Wray, Reg Reg mr Nani Aragon RN RN Dionna Chin RN RN Vazquez Solomon MD MD ec2 Corrections: (The following items were deleted from the chart) 11:08 11:04 Allergies: No Known Allergies; ph ph 14:20 14:17 Discharged to home ambulatory, with family, ph ph
[2023-11-10 14:55] VITALS: BP 118/79; TEMP 97.1; O2SAT 96
== END ==
LOC: ER 10:49
DX: K51.50 Left sided colitis without complications (principal); I10 Essential (primary) hypertension; Z88.0 Allergy status to penicillin; Z99.81 Dependence on supplemental oxygen
CPT/HCPCS: 85025; 36415; 83690; 80053; 74177; 99284; Q9967; C9113; J7040

== ENCOUNTER 2024-01-23 09:17 | Inpatient (IN) | payer OTHER ==
[2024-01-23] MEDS ORDERED: MORPHINE 4 MG/ML SYR ONE (10:06)
[2024-01-23] MEDS ORDERED: ONDANSETRON 4 MG/2 ML VIAL ONE (10:06)
[2024-01-23 10:47] LABS: Absolute Basophils 0.1 K/uL (0-0.5); MCV 82.8 fL (80-100)
[2024-01-23 10:53] LABS: PT Prothrombin Time 13.2 SECONDS (9.5-12.5); PTT, Activated Partial Thromb 25.3 SECONDS (24.3-36.9); Protime INR 1.21
[2024-01-23 11:24] LABS: Absolute Eosinophils 0.4 K/uL (0-0.5); Absolute Monocytes 1.2 K/uL (0.1-1.3); Absolute Neutrophil 11.3 K/uL (1.8-8.0); Basophils % 0.5 % (0-1.3); Eosinophils % 2.9 % (0-4.4); Hematocrit 33.9 % (36.0-45.0); MCH 26.9 pg (27.0-35.0); MCHC 32.5 g/dL (32.0-36.0); MPV 6.9 fL (7.6-11.3); Monocytes % 8.4 % (3.3-12.3); Neutrophils % 81.2 % (41.7-73.7); Platelets 577 thou/uL (152-406); RBC Red Blood Cell Count 4.09 M/uL (3.86-4.86); Red Cell Distribution Width 15.6 % (12.1-15.2)
[2024-01-23] MEDS ORDERED: NA CHLORIDE 0.9% 1,000 ML ONE ×2 (11:24→15:37)
[2024-01-23 11:42] LABS: Albumin 2.2 g/dL (3.4-5.0); Albumin/Globulin Ratio 0.4 (1.1-1.8); Bilirubin Total 0.2 mg/dL (0.2-1.0); Globulin 5.1 g/dL (2.3-3.5); Protein, Total 7.3 g/dL (6.4-8.2)
--- NOTE | 2024-01-23 12:16 | RAD REPORT ---
EXAM DESCRIPTION: CTAbdomen Pelvis W Contrast - 01/23/2024 12:05 pm CLINICAL HISTORY: Abdominal pain. rectal pain COMPARISON: Abdomen Pelvis W Contrast dated 11/10/2023 TECHNIQUE: Biphasic CT imaging of the abdomen and pelvis was performed with 100 ml non-ionic IV cont rast. All CT scans are performed using dose optimization technique as appropriate and may include automated exposure control or mA/KV adjustment according to patient size. FINDINGS: The lung bases are clear. The liver, spleen, pancreas, adrenal glands and kidneys are within normal limits. No bowel obstruction, free air, free fluid or abscess. There is moderate thickening of the rectosigmo id colon noted with surrounding inflammation in the fat. Several lymph nodes are also present surroun ding the rectosigmoid colon. This pattern would suggest colitis. Upstream significant stool retention seen. No finding indicate perirectal abscess. The appendix is not identified as a discrete structure , however, no secondary findings of appendicitis are identified. No suspicious bony findings. IMPRESSION: There is a moderate colitis pattern involving the rectosigmoid colon. There are numerous diverticular also present in the sigmoid colon. Exact etiology of this colitis is not apparent howev er colonoscopy would be suggested after appropriate therapy to directly visualize this region of the colon. No evidence of perirectal abscess.
--- NOTE | 2024-01-23 12:55 | EDPHYS ---
Physician Documentation [facility] Name: Jennifer Blake Age: 83 yrs Sex: Female : 1940 Arrival Date: 01/23/2024 Time: 09:17 Bed 5 Private MD: ED Physician Baldomero Miller HPI: 01/22 09:55 This 83 yrs old Unknown Female presents to ER via EMS with complaints of Rectal Pain. cp 09:55 The patient presents to the emergency department with pain in the rectal area, that is cp moderate, pain of buttocks. 09:55 Context: the patient referred to ED by PCP for evaluation of possible rectal abscess. cp Associate signs and symptoms: Pertinent negatives: abdominal pain, constipation, diarrhea, fever, lower GI bleeding. Historical: - Allergies: 09:20 PENICILLINS; bp - PMHx: 09:20 home O2; Hypercholesterolemia; Hypertensive disorder; Thyroid problem; bp - Immunization history:: Adult Immunizations up to date. - Social history:: Smoking status: Patient denies any tobacco usage or history of. ROS: 10:00 Constitutional: Negative for fever, cp 10:00 Abdomen/GI: Positive for rectal pain, Negative for abdominal pain, vomiting, diarrhea, cp constipation, 10:00 Respiratory: Negative for cough, shortness of breath, wheezing, cp 10:00 Eyes: Negative for injury, pain, redness, and discharge, cp 10:00 ENT: Negative for drainage from ear(s), ear pain, sore throat, difficulty swallowing, difficulty handling secretions, 10:00 Cardiovascular: Negative for chest pain, palpitations, 10:00 Neuro: Negative for altered mental status, dizziness, headache, syncope, weakness, 10:00 All other systems are negative, Exam: 10:05 Constitutional: The patient appears in no acute distress, alert, awake, non-toxic, well cp developed, well nourished, obese, uncomfortable, 10:05 Head/Face: Normocephalic, atraumatic. cp 10:05 Eyes: Periorbital structures: appear normal, Conjunctiva: normal, no exudate, no cp injection, Sclera: no appreciated abnormality, Lids and lashes: appear normal, bilaterally, 10:05 ENT: External ear(s): are unremarkable, Nose: is normal, Mouth: Lips: moist, Oral mucosa: moist, Posterior pharynx: Airway: no evidence of obstruction, patent, 10:05 Chest/axilla: Inspection: normal, 10:05 Cardiovascular: Rate: normal, Rhythm: regular, Edema: is not appreciated, JVD: is not appreciated, 10:05 Respiratory: the patient does not display signs of respiratory distress, Respirations: normal, no use of accessory muscles, no retractions, labored breathing, is not present, Breath sounds: are clear throughout, no decreased breath sounds, no stridor, no wheezing, 10:05 Abdomen/GI: Inspection: obese Bowel sounds: active, all quadrants, Palpation: abdomen is soft and non-tender, in all quadrants, Rectal exam: mild erythema of rectum, area of drainage in coccyx area. 10:05 Neuro: Orientation: to person, place \T\ time. Mentation: is normal, 10:45 ECG was reviewed by the Attending Physician. Vital Signs: 09:19 BP 134 / 80; Pulse 75; Resp 16; Temp 98; Pulse Ox 95% ; bp 11:00 BP 144 / 55; Pulse 56; Resp 18; Pulse Ox 90% on R/A; ld1 11:30 Pulse Ox 82% on R/A; ld1 11:34 BP 145 / 55; Pulse 56; Resp 20; Pulse Ox 96% on 3 lpm NC; ld1 13:26 BP 130 / 54; Pulse 61; Resp 16; Pulse Ox 100% ; bp MDM: 10:00 Differential diagnosis: hemorrhoids, fissure, abscess, pilonidal cyst. cp 12:55 Patient medically screened. cp 13:00 Data reviewed: vital signs, nurses notes, lab test result(s), EKG, radiologic studies, cp CT scan. 13:00 Management of patient was discussed with the following: Hospitalist: Saira Florentino ENGINE LATHE SET UP OPERATOR TOOL cp will admit patient after discussion. Independent interpretation of the following test(s) in the Emergency Department EKG: See my EKG interpretation above. Care significantly affected by the following chronic conditions: Hypertension, Obesity. Counseling: I had a detailed discussion with the patient and/or guardian regarding the historical points, exam findings, and any diagnostic results supporting the discharge/admit diagnosis, lab results, radiology results, the need for further work-up and treatment in the hospital. 01/22 09:51 Order name: Blood Culture Adult (2) cp 01/22 09:51 Order name: CBC with Diff; Complete Time: 11:50 cp 01/22 09:51 Order name: CMP; Complete Time: 11:50 cp 01/22 11:52 Interpretation: Normal except: GLUC 125; BUN 20; CRE 1.19; GFR 46; ALB 2.2; GLOB 5.1; cp A/G 0.4. 01/22 09:51 Order name: Lactate w/ 2H reflex if indic.; Complete Time: 11:50 cp 01/22 09:51 Order name: Protime (+inr); Complete Time: 11:50 cp 01/22 09:51 Order name: Ptt, Activated; Complete Time: 11:50 cp 01/22 09:51 Order name: Urinalysis w/ reflexes cp 01/22 14:35 Order name: Lactate w/ 2H reflex if indic. EDMS 01/22 14:35 Order name: CBC with Automated Diff EDMS 01/22 14:35 Order name: CBC with Automated Diff EDMS 01/22 14:35 Order name: CBC with Automated Diff EDMS 01/22 14:35 Order name: CBC with Automated Diff EDMS 01/22 14:35 Order name: Comprehensive Metabolic Panel EDMS 01/22 14:35 Order name: Comprehensive Metabolic Panel EDMS 01/22 14:35 Order name: Comprehensive Metabolic Panel EDMS 01/22 14:35 Order name: Comprehensive Metabolic Panel EDMS 01/22 14:35 Order name: Lipid Profile EDMS 01/22 14:35 Order name: Lipid Profile EDMS 01/22 14:39 Order name: Urinalysis w/ reflexes EDMS 01/22 16:01 Order name: Glucose, Ancillary Testing EDMS 01/22 16:52 Order name: Lactate Sepsis 2 HR Follow-up EDMS 01/22 09:51 Order name: CT Abd/Pelvis - PO and IV Contrast; Complete Time: 12:28 cp 01/22 09:51 Order name: EKG; Complete Time: 09:52 cp 01/22 09:51 Order name: Accucheck; Complete Time: 09:53 cp 01/22 09:51 Order name: Cardiac monitoring; Complete Time: 09:53 cp 01/22 09:51 Order name: EKG - Nurse/Tech; Complete Time: 11:00 cp 01/22 09:51 Order name: IV Saline Lock - Large Bore; Complete Time: 11:00 cp 01/22 09:51 Order name: Labs collected and sent; Complete Time: 11:00 cp 01/22 09:51 Order name: O2 Per Protocol; Complete Time: :53 cp 01/22 09:51 Order name: O2 Sat Monitoring; Complete Time: 09:53 cp 01/22 09:51 Order name: Vital Signs; Complete Time: 09:53 cp 01/22 10:51 Order name: Labs - recollect needed: purple and green tube; Complete Time: 11:22 aa5 EC:45 Rate is 56 beats/min. Rhythm is regular. QRS interval is normal. QT interval is normal. cp T waves are Inverted in lead aVR. Interpreted by me. Reviewed by me. Administered Medications: 10:40 Drug: morphine IVP or IV 4 mg IVP once over 4 mins Route: IVP; Infused Over: 4 mins; bp Site: right forearm; 12:54 Follow up: Response: No adverse reaction bp 10:40 Drug: Ondansetron IVP 4 mg IVP once; over 2 minutes Route: IVP; Site: right forearm; bp 12:54 Follow up: Response: No adverse reaction bp 11:31 Drug: NS 0.9% IV 1000 ml IV at 999 ml/hr Per protocol; 1000 mL bolus Route: IV; Rate: bp 999 ml/hr; Site: right forearm; 20:23 Follow up: Response: No adverse reaction; IV Status: Completed infusion; IV Intake: as6 1000ml 13:26 Drug: metroNIDAZOLE IVPB 500 mg 100 ml IVPB once over 30 mins Volume: 100 ml; Route: bp IVPB; Infused Over: 30 mins; Site: right forearm; 20:23 Follow up: Response: No adverse reaction; IV Status: Completed infusion; IV Intake: as6 100ml 13:58 Drug: LevaQUIN IVPB 750 mg IVPB once Route: IVPB; Site: right forearm; bp 20:24 Follow up: Response: No adverse reaction; IV Status: Completed infusion; IV Intake: as6 100ml Disposition: 01/23 07:15 Co-signature as Attending Physician, Baldomero Miller MD I reviewed the patient's care rn provided by the Advanced Practice Provider and agree with the diagnosis and treatment plan. Disposition Summary: 01/23/24 12:55 Hospitalization Ordered Notes: Hospitalization Status: Inpatient Admission cp Provider: Bobby Mendez cp Condition: Stable cp Problem: new cp Symptoms: have improved cp Bed/Room Type: Standard cp Location: Telemetry/MedSurg (Inpatient)(01/23/24 18:40) bd Room Assignment: 220(01/23/24 18:40) bd Diagnosis - Colitis cp - Sepsis, unspecified organism cp Forms: - Medication Reconciliation Form cp - SBAR form cp - Leadership Thank You Letter cp Signatures: Dispatcher [employer] EDMS Christy Sandhu Roman, MD MD rn Bonnie Stearns RN RN aa5 Winston Riojas PA PA cp Jeromy Melgoza RN RN bp Brody Hall RN as6 Corrections: (The following items were deleted from the chart) 01/22 16:10 12:55 Telemetry/MedSurg (Inpatient) cp bd 16:10 12:55 cp bd 18:40 16:10 [facility] ER HOLD bd bd 18:40 16:10 ERHOLD- bd bd 01/23 20:23 01/22 09:55 The patient presents to the emergency department with pain in the rectal cp area, that is moderate, cp
--- NOTE | 2024-01-23 12:55 | ER ---
Nurse's Notes [facility] Name: Jennifer Blake Age: 83 yrs Sex: Female : 1940 Arrival Date: 01/23/2024 Time: 09:17 Bed 5 Private MD: Diagnosis: Colitis;Sepsis, unspecified organism Presentation: 01/22 09:19 Chief complaint: EMS states: SENT FROM [facility] BY PCP FOR EVAL OF TRISTON-RECTAL bp ABSCESS. Coronavirus screen: At this time, the client does not indicate any symptoms associated with coronavirus-19. Ebola Screen: No symptoms or risks identified at this time. Initial Sepsis Screen: Does the patient meet any 2 criteria? No. Patient's initial sepsis screen is negative. Does the patient have a suspected source of infection? No. Patient's initial sepsis screen is negative. Risk Assessment: Do you want to hurt yourself or someone else? Patient reports no desire to harm self or others. Onset of symptoms is unknown. 09:19 Method Of Arrival: EMS: [facility] bp 09:19 Acuity: MARIAH 3 bp Triage Assessment: 09:20 General: Appears in no apparent distress. Behavior is calm, cooperative, appropriate bp for age. Pain: Complains of pain in buttocks. Historical: - Allergies: 09:20 PENICILLINS; bp - PMHx: 09:20 home O2; Hypercholesterolemia; Hypertensive disorder; Thyroid problem; bp - Immunization history:: Adult Immunizations up to date. - Social history:: Smoking status: Patient denies any tobacco usage or history of. Screenin:20 [facility] ED Fall Risk Assessment (Adult) History of falling in the last 3 months, bp including since admission No falls in past 3 months (0 pts). Abuse screen: Denies threats or abuse. Denies injuries from another. Nutritional screening: No deficits noted. Tuberculosis screening: No symptoms or risk factors identified. Assessment: 09:20 General: SEE TRIAGE NOTE. bp 11:30 Reassessment: Patient appears in no apparent distress at this time. Patient is alert, bp oriented x 3, equal unlabored respirations, skin warm/dry/pink. 13:28 Reassessment: ADMIT INITIATED. bp 20:05 Reassessment: Call placed to 2nd floor as indicated by charge nurse to advise about nj1 patient being taken to room. Faxed SBAR along with other documentation at 1935. Vital Signs: 09:19 BP 134 / 80; Pulse 75; Resp 16; Temp 98; Pulse Ox 95% ; bp 11:00 BP 144 / 55; Pulse 56; Resp 18; Pulse Ox 90% on R/A; ld1 11:30 Pulse Ox 82% on R/A; ld1 11:34 BP 145 / 55; Pulse 56; Resp 20; Pulse Ox 96% on 3 lpm NC; ld1 13:26 BP 130 / 54; Pulse 61; Resp 16; Pulse Ox 100% ; bp ED Course: 09:18 Patient arrived in ED. ec2 09:18 Winston Riojas PA is PHCP. ec2 09:19 Jeromy Melgoza, ROCCO is Primary Nurse. bp 09:20 Triage completed. bp 09:20 Arm band placed on. bp 09:20 Patient has correct armband on for positive identification. Bed in low position. Call bp light in reach. Side rails up X2. 09:22 Baldomero Miller MD is Attending Physician. cp 10:41 Inserted saline lock: 22 gauge in right forearm, using aseptic technique. Blood bp collected. 12:07 CT Abd/Pelvis - PO and IV Contrast In Process Unspecified. EDMS 12:52 Bobby Mendez MD is Hospitalizing Provider. cp 20:22 Provided Education on: need for admit. as6 20:23 No provider procedures requiring assistance completed. Patient admitted, IV remains in as6 place. Administered Medications: 10:40 Drug: morphine IVP or IV 4 mg IVP once over 4 mins Route: IVP; Infused Over: 4 mins; bp Site: right forearm; 12:54 Follow up: Response: No adverse reaction bp 10:40 Drug: Ondansetron IVP 4 mg IVP once; over 2 minutes Route: IVP; Site: right forearm; bp 12:54 Follow up: Response: No adverse reaction bp 11:31 Drug: NS 0.9% IV 1000 ml IV at 999 ml/hr Per protocol; 1000 mL bolus Route: IV; Rate: bp 999 ml/hr; Site: right forearm; 20:23 Follow up: Response: No adverse reaction; IV Status: Completed infusion; IV Intake: as6 1000ml 13:26 Drug: metroNIDAZOLE IVPB 500 mg 100 ml IVPB once over 30 mins Volume: 100 ml; Route: bp IVPB; Infused Over: 30 mins; Site: right forearm; 20:23 Follow up: Response: No adverse reaction; IV Status: Completed infusion; IV Intake: as6 100ml 13:58 Drug: LevaQUIN IVPB 750 mg IVPB once Route: IVPB; Site: right forearm; bp 20:24 Follow up: Response: No adverse reaction; IV Status: Completed infusion; IV Intake: as6 100ml Medication: 09:20 VIS not applicable for this client. bp Intake: 20:23 IV: 1000ml; Total: 1000ml. as6 20:23 IV: 100ml; Total: 1100ml. as6 20:24 IV: 100ml; Total: 1200ml. as6 Outcome: 12:55 Decision to Hospitalize by Provider. cp 20:22 Admitted to Med/surg accompanied by nurse, via stretcher, room 220, with chart, as6 20:22 Condition: stable 20:22 Instructed on the need for admit, 20:30 Patient left the ED. as6 Signatures: Dispatcher [employer] EDNV Winston Riojas PA PA cp Jeromy Melgoza, RN RN bp Isabel Wayne, RN RN ld1 Brody Hall RN RN as6 Randi Lucio RN RN nj1 Vazquez Solomon MD MD ec2
[2024-01-23] MEDS ORDERED: METRONIDAZOLE 500mg IVPB 500 MG/100 ML BAG IV ONE ×2 (13:00→15:37)
[2024-01-23] MEDS ORDERED: Levofloxacin 750mg IV 750 MG/150 ML BAG IV ONE (13:00)
--- NOTE | 2024-01-23 14:46 | P.HP ---
Certification for Inpatient Patient admitted to: Inpatient With expected LOS: >2 Midnights Patient will require the following post-hospital care: Shelter Practitioner: I am a practitioner with admitting privileges, knowledge of patient current condition, hospital course, and medical plan of care. Services: Services provided to patient in accordance with Admission requirements found in Title 42 Section 412.3 of the Code of Federal Regulations <Saira Florentino - Last Filed: 01/24/24 07:39> Patient History Date of Service: 01/24/24 Primary Care Provider: Adeline Peterson History of Present Illness: Mr. Blake is a 83-year-old with a past medical history of hypertension, hyperlipidemia, morbid obesity, uterine cancer treated with hysterectomy, and osteoporosis. She has lived at [facility] for about 3 years. She presented to the emergency department with lower abdominal pain. She denies chills, rigors, fever. A CAT scan was performed and she was noted to have rectosigmoid colitis. We will admit her for IV hydration and IV antibiotics. Home medications list reviewed: Yes - Past Medical/Surgical History Has patient received pneumonia vaccine in the past: No Diabetic: No -: HTN -: HLD -: Hypothyroid -: Osteoarthritis -: uterine ca -: O2 dependent -: cholecystectomy -: wrist surgery -: knee surgery -: hysterectomy -: hernia repair Psychosocial/ Personal History: , lives at [facility] - Family History Family History: Reviewed- Non-Contributory - Social History Smoking Status: Never smoker Alcohol use: No CD- Drugs: No Caffeine use: Yes Place of Residence: Group Home <Saira Florentino - Last Filed: 01/24/24 07:39> Date of Service: 01/23/24 <Bobby Mendez - Last Filed: 01/27/24 00:45> Allergies Penicillins Allergy (Verified 01/24/24 00:24) unknown Home Medications: RX: Ascorbic Acid [Vitamin C*] 500 mg PO DAILY 01/24/24 RX: Aspirin Chewable [Aspirin Chewable*] 81 mg PO DAILY 01/24/24 RX: Calcium Acetate [Phoslo*] 1 tab PO DAILY 01/24/24 RX: Codeine/APAP [Tylenol #3*] 1 tab PO Q6HP PRN 01/24/24 RX: Diclofenac Sodium/Misoprostol [Diclofenac-Misoprost 50-0.2 mg] 1 each PO Q8HP PRN 01/24/24 RX: Furosemide [Lasix*] 20 mg PO DAILY 01/24/24 RX: Levothyroxine Sodium [Synthroid] 50 mcg PO DAILY 01/24/24 RX: Losartan Potassium 50 mg PO DAILY 01/24/24 RX: Melatonin 5 mg PO BEDTIME 01/24/24 RX: Metoprolol Succinate [Toprol Xl*] 25 mg PO DAILY 01/24/24 RX: Multivitamin 1 each PO DAILY 01/24/24 RX: Nystatin [Nystop] 30 gm TP BID 01/24/24 RX: Pantoprazole [Protonix Tab*] 40 mg PO DAILY 01/24/24 RX: Potassium Chloride 20 meq PO DAILY AT SUPPER 01/24/24 RX: Pravastatin Sodium 40 mg PO BEDTIME 01/24/24 RX: Simethicone [Mylicon*] 80 mg PO BEDTIME 01/24/24 RX: Zinc Sulfate [Zinc Sulfate*] 220 mg PO DAILY 01/24/24 RX: lisinopriL [Lisinopril] 20 mg PO DAILY 01/24/24 Levofloxacin [Levaquin] 500 mg PO DAILY #5 tab 01/26/24 RX: Hari [Hari*] 1 pkt PO BID #14 packet 01/26/24 metroNIDAZOLE [Flagyl] 500 mg PO TID #12 cap 01/26/24 Review of Systems 10-point ROS is otherwise unremarkable Gastrointestinal: Abdominal Pain Musculoskeletal: Other (hip/knee pain) Integumentary: As per HPI <Saira Florentino - Last Filed: 01/24/24 07:39> Physical Examination - Physical Exam General: Alert, Oriented x3, Obese HEENT: Atraumatic, Normocephalic Neck: 2+ carotid pulse no bruit Respiratory: Normal air movement Cardiovascular: Regular rate/rhythm Capillary refill: <2 Seconds Gastrointestinal: Tenderness (mild lower abdominal tenderness) Musculoskeletal: Other (does not move much, morbidly obese, lower extremity problems) Integumentary: Other (pilonidal sinus, leaking serosanguineous fluid) Neurological: Abnormal strength, Abnormal tone Lymphatics: No axilla or inguinal lymphadenopathy Urinary: Other (brief) External genitalia: Deferred Rectal: No tenderness - Studies Laboratory Data (last 24 hrs) 01/23/24 01/23/24 01/23/24 11:15 11:15 10:35 WBC 13.90 H Hgb 11.0 L Hct 33.9 L Plt Count 577 H PT 13.2 H INR 1.21 APTT 25.3 Sodium 138 Potassium 5.0 BUN 20 H Creatinine 1.19 H Glucose 125 H Total Bilirubin 0.2 AST 26 ALT 45 Alkaline Phosphatase 103 <Saira Florentino - Last Filed: 01/24/24 07:39> Assessment and Plan - Plan Sepsis without shock: Rectosigmoid colitis: Skin breakdown/Obesity: Essential Hypertension: IV hydration IV antibiotics (flagyl and merrem) Outpatient colonoscopy - GI names for f/u) Pain control, Turn q 2h, gauze to absorb pilonidal dc Monistat powder to area beneath panus Monitor for perforation Surgery consult as needed for no improvement CT abdomen and pelvis shows - moderate colitis involving rectosigmoid colon monitor and replete electrolytes trend lactate Trend vital signs Continue home medications as appropriate Lovenox for DVT prophylaxis Pt's Daughter is POAH - pt states DNR Discharge Plan: Group Home Plan to discharge in: 72 Hours - Advance Directives Does patient have a Living Will: No Does patient have a Durable POA for Healthcare: Yes Comments: Daughter <Saira Florentino - Last Filed: 01/24/24 07:39> Date of Service: 01/23/24 History and physical reviewed as mentioned above. Patient was seen and examined. Agree with plan of care as mentioned. Patient is clinically doing well and patient denies any new complaints. Patient's abdominal symptoms are stable. Patient is doing well and patient is stable. We will go ahead and monitor patient's pain and for pain is well controlled will advance her diet as tolerated. <Bobby Mendez - Last Filed: 01/27/24 00:45>
[2024-01-23] MEDS: ENOXAPARIN 40 MG/0.4 ML SQ SCH (15:00)
[2024-01-23] MEDS: NA CHLORIDE 0.9% 1,000 ML IV SCH (15:00)
[2024-01-23] MEDS ORDERED: ENOXAPARIN 40 MG/0.4 ML SQ ONE (15:37)
[2024-01-23] MEDS: INSULIN REGULAR (HUMAN) 100 UNIT/ML SQ SCH (16:30)
[2024-01-23] MEDS: CEFEPIME 2 GM in NA CHLORIDE 0.9% 100 ML IV SCH (17:00)
[2024-01-23] MEDS: METRONIDAZOLE 500mg IVPB 500 MG/100 ML BAG IV SCH (17:00)
[2024-01-23] MEDS ORDERED: CEFEPIME 2 GM VIAL ONE (18:27)
[2024-01-23] MEDS ORDERED: NA CHLORIDE 0.9% 100 ML ONE (18:27)
[2024-01-23] MEDS: NYSTATIN PWDR 100000 UNIT/GM TOP SCH (21:00)
[2024-01-23 23:33] VITALS: BMI 53.8
[2024-01-24] MEDS: CODEINE 30MG/APAP 300MG TAB PO PRN (01:42)
[2024-01-24] MEDS: LEVOTHYROXINE SOD 0.05 MG TABLET PO SCH (06:42)
--- NOTE | 2024-01-24 07:39 | P.PN ---
Subjective Date of Service: 01/24/24 Primary Care Provider: Adeline Peterson Chief Complaint: abdominal pain Subjective: Improving <Saira Florentino - Last Filed: 01/24/24 07:44> Date of Service: 01/24/24 <Bobby Mendezzal - Last Filed: 01/27/24 00:44> Review of Systems 10-point ROS is otherwise unremarkable General: Unremarkable ENT: Unremarkable Respiratory: Unremarkable Cardiovascular: Unremarkable Gastrointestinal: Abdominal Pain, As per HPI Genitourinary: Unremarkable Musculoskeletal: Unremarkable Integumentary: As per HPI Neurological: Unremarkable Lymphatics: Unremarkable <Saira Florentino - Last Filed: 01/24/24 07:44> Physical Examination - Vital Signs Temperature: 99.0 F Blood Pressure: 134/60 Pulse: 73 Respirations: 18 Pulse Ox (%): 93 - Physical Exam General: In no apparent distress, Oriented x3, Obese HEENT: Atraumatic, Normocephalic Neck: Supple, 2+ carotid pulse no bruit, JVD not distended Respiratory: Expiratory wheezes Cardiovascular: No edema, Regular rate/rhythm Capillary refill: <2 Seconds Gastrointestinal: Soft and benign, Tenderness (mild lower quads) Musculoskeletal: No clubbing, No swelling Integumentary: Other (pilonidal sinus) Neurological: Normal speech Lymphatics: No axilla or inguinal lymphadenopathy External genitalia: Deferred Rectal: Deferred - Studies Laboratory Data (last 24 hrs) 01/23/24 01/23/24 01/23/24 11:15 11:15 10:35 WBC 13.90 H Hgb 11.0 L Hct 33.9 L Plt Count 577 H PT 13.2 H INR 1.21 APTT 25.3 Sodium 138 Potassium 5.0 BUN 20 H Creatinine 1.19 H Glucose 125 H Total Bilirubin 0.2 AST 26 ALT 45 Alkaline Phosphatase 103 <Saira Florentino - Last Filed: 01/24/24 07:44> Assessment And Plan - Plan Sepsis without shock: Rectosigmoid colitis: Skin breakdown/Obesity: Essential Hypertension: IV hydration IV antibiotics (flagyl and cefepime) Outpatient colonoscopy - GI names for f/u) Pain control, Turn q 2h, gauze to absorb pilonidal dc Monistat powder to area beneath panus Monitor for perforation Surgery consult as needed for no improvement CT abdomen and pelvis shows - moderate colitis involving rectosigmoid colon monitor and replete electrolytes trend lactate Trend vital signs Continue home medications as appropriate Lovenox for DVT prophylaxis Pt's Daughter is VELMA - pt states DNR Discharge Plan: Other ([place]) Plan to discharge in: 48 Hours - Code Status/Comfort Care Code Status Assessed: Yes (Pt states she does not wish CPR) Critical Care: No <Saira Florentino - Last Filed: 01/24/24 07:44> Date of Service: 01/24/24 Agree with plan of care as mentioned above. Patient doing well with no new complaints. Pain controlled. Advance diet to full liquid diet. <Bobby Mendez - Last Filed: 01/27/24 00:44>
[2024-01-24] MEDS: LOSARTAN POTASSIUM 50 MG TABLET PO SCH (08:31)
[2024-01-24] MEDS: FUROSEMIDE 20 MG/ 2ML VIAL IV SCH (08:31)
[2024-01-24 08:32] LABS: Albumin 2.1 g/dL (3.4-5.0); Albumin/Globulin Ratio 0.4 (1.1-1.8); Anion Gap 8.3 mEq/L (5.0-15.0); Bilirubin Total 0.3 mg/dL (0.2-1.0); Globulin 4.8 g/dL (2.3-3.5); Potassium 4.3 mEq/L (3.5-5.1); Protein, Total 6.9 g/dL (6.4-8.2)
[2024-01-24 10:11] LABS: Absolute Eosinophils 0.2 K/uL (0-0.5); Absolute Lymphocytes (CBC) 0.7 K/uL (0.7-4.9); Absolute Monocytes 1.2 K/uL (0.1-1.3); Absolute Neutrophil 9.1 K/uL (1.8-8.0); Basophils % 0.4 % (0-1.3); Eosinophils % 2.1 % (0-4.4); Hemoglobin 10.9 g/dL (12.0-15.0); Lymphocytes % 6.5 % (15.3-44.8); MCH 26.8 pg (27.0-35.0); MCHC 32.1 g/dL (32.0-36.0); MCV 83.3 fL (80-100); MPV 6.8 fL (7.6-11.3); Monocytes % 10.5 % (3.3-12.3); Neutrophils % 80.5 % (41.7-73.7); Platelets 528 thou/uL (152-406); RBC Red Blood Cell Count 4.08 M/uL (3.86-4.86); Red Cell Distribution Width 15.2 % (12.1-15.2)
[2024-01-24 10:16] LABS: Percent Reticulocyte Count 1.02 % (0.4-2.05); RBC Red Blood Cell Count 4.08 M/uL (3.86-4.86)
[2024-01-24 10:37] LABS: Magnesium 1.7 mg/dL (1.6-2.4)
[2024-01-24 10:38] LABS: Thyroid Stimulating Hormone 6.28 uIU/mL (0.358-3.740)
[2024-01-24 15:13] LABS: Specific Gravity 1.011 (1.005-1.030); Urine Bacteria <20 /HPF (<20); Urine Bilirubin NEGATIVE (Negative); Urine Blood 1+ (Negative); Urine Clarity Extremely Turbid (Clear); Urine Color Light-Yellow (Yellow); Urine Crystals Unidentified Few /HPF (None Seen); Urine Glucose NEGATIVE (Negative); Urine Mucus Slight /HPF (None Seen); Urine Protein NEGATIVE (Negative); Urine RBC <5 /HPF (None Seen); Urine Urobilinogen Normal (Normal); Urine pH 5.5 (5.0-7.0)
[2024-01-24] MEDS: JUVEN PACKET PO SCH (21:00)
[2024-01-25 03:48] LABS: Absolute Eosinophils 0.4 K/uL (0-0.5); Absolute Monocytes 1.3 K/uL (0.1-1.3); Absolute Neutrophil 6.9 K/uL (1.8-8.0); Basophils % 0.5 % (0-1.3); Eosinophils % 4.2 % (0-4.4); Hematocrit 33.9 % (36.0-45.0); Lymphocytes % 9.9 % (15.3-44.8); MCHC 32.5 g/dL (32.0-36.0); MCV 83.2 fL (80-100); MPV 6.9 fL (7.6-11.3); Monocytes % 13.4 % (3.3-12.3); Platelets 504 thou/uL (152-406); RBC Red Blood Cell Count 4.08 M/uL (3.86-4.86); Red Cell Distribution Width 15.2 % (12.1-15.2)
[2024-01-25 04:04] LABS: Albumin/Globulin Ratio 0.4 (1.1-1.8); Anion Gap 7.8 mEq/L (5.0-15.0); Bilirubin Total 0.3 mg/dL (0.2-1.0); Globulin 4.5 g/dL (2.3-3.5); Potassium 3.8 mEq/L (3.5-5.1); Protein, Total 6.5 g/dL (6.4-8.2)
--- NOTE | 2024-01-25 07:37 | P.PN ---
Date of Service: 01/25/24 Subjective Date of Service: 01/25/24 Primary Care Provider: Adeline Peterson Chief Complaint: abdominal pain Subjective: Improving Review of Systems 10-point ROS is otherwise unremarkable General: Unremarkable ENT: Unremarkable Respiratory: Unremarkable Cardiovascular: Unremarkable Gastrointestinal: Abdominal Pain significantly improved, As per HPI Genitourinary: Unremarkable Musculoskeletal: Unremarkable Integumentary: As per HPI Neurological: Unremarkable Lymphatics: Unremarkable Physical Examination - Vital Signs reviewed - Physical Exam General: In no apparent distress, Oriented x3, Obese HEENT: Atraumatic, Normocephalic Neck: Supple, 2+ carotid pulse no bruit, JVD not distended Respiratory: Expiratory wheezes Cardiovascular: No edema, Regular rate/rhythm Capillary refill: <2 Seconds Gastrointestinal: Soft and benign, Tenderness resolved Musculoskeletal: No clubbing, No swelling Integumentary: Other (pilonidal sinus) Neurological: Normal speech Lymphatics: No axilla or inguinal lymphadenopathy External genitalia: Deferred Rectal: Deferred Assessment And Plan - Plan Sepsis without shock: Rectosigmoid colitis: Skin breakdown/Obesity: Essential Hypertension: IV hydration IV antibiotics (flagyl and cefepime) Outpatient colonoscopy - GI names for f/u) Pain control, Turn q 2h, gauze to absorb pilonidal dc Monistat powder to area beneath panus CT abdomen and pelvis shows - moderate colitis involving rectosigmoid colon monitor and replete electrolytes trend lactate Trend vital signs Continue home medications as appropriate Lovenox for DVT prophylaxis Pt's Daughter is POAH - pt states DNR Discharge Plan: Other ([place]) Plan to discharge in: 24 Hours - Code Status/Comfort Care Code Status Assessed: Yes (Pt states she does not wish CPR) Critical Care: No <Saira Florentino - Last Filed: 01/25/24 07:38> Agree with plan of care as mentioned above. Patient doing well with no new complaints. Advance diet as tolerated. <Bobby Mendez - Last Filed: 01/27/24 00:43>
[2024-01-25] MEDS: POTASSIUM CL SA 10 MEQ TAB PO ONE (08:33)
[2024-01-26 04:29] LABS: Absolute Basophils 0.1 K/uL (0-0.5); Absolute Eosinophils 0.4 K/uL (0-0.5); Absolute Lymphocytes (CBC) 1.1 K/uL (0.7-4.9); Absolute Monocytes 1.1 K/uL (0.1-1.3); Absolute Neutrophil 7.6 K/uL (1.8-8.0); Basophils % 0.5 % (0-1.3); Eosinophils % 3.6 % (0-4.4); Hematocrit 32.7 % (36.0-45.0); Hemoglobin 10.8 g/dL (12.0-15.0); Lymphocytes % 10.4 % (15.3-44.8); MCH 27.1 pg (27.0-35.0); MCHC 32.9 g/dL (32.0-36.0); MCV 82.4 fL (80-100); Monocytes % 11.1 % (3.3-12.3); Neutrophils % 74.4 % (41.7-73.7); Platelets 518 thou/uL (152-406); RBC Red Blood Cell Count 3.97 M/uL (3.86-4.86); Red Cell Distribution Width 15.3 % (12.1-15.2)
[2024-01-26 04:43] LABS: Albumin 1.8 g/dL (3.4-5.0); Albumin/Globulin Ratio 0.4 (1.1-1.8); Anion Gap 8.6 mEq/L (5.0-15.0); Bilirubin Total 0.3 mg/dL (0.2-1.0); Globulin 4.5 g/dL (2.3-3.5); Potassium 3.6 mEq/L (3.5-5.1); Protein, Total 6.3 g/dL (6.4-8.2)
[2024-01-26] MEDS: POTASSIUM CL SA 10 MEQ TAB PO ONE (08:24)
[2024-01-26 09:17] VITALS: O2SAT 92
[2024-01-26 12:13] VITALS: BP 139/66; TEMP 97.8
--- NOTE | 2024-01-26 12:39 | P.DS ---
Admission Date: 01/23/24 Discharge Date: 01/26/24 Primary Care Provider: Adeline Peterson Reason for Admission: abdominal pain Brief History of Present Illness: Mr. Blake is a 83-year-old with a past medical history of hypertension, hyperlipidemia, morbid obesity, uterine cancer treated with hysterectomy, and osteoporosis. She has lived at [facility] for about 3 years. She presented to the emergency department with lower abdominal pain. She denies chills, rigors, fever. A CAT scan was performed and she was noted to have rectosigmoid colitis. We will admit her for IV hydration and IV antibiotics. Hospital Course: Ms. Blake was admitted for rectosigmoid colitis, her hospital stay has been uncomplicated. Her abdomen is feeling better and she is tolerating p.o. fluids and meals. She desires return to [facility]. She remains afebrile and is back to her physical baseline. <Saira Florentino - Last Filed: 01/26/24 12:28> Admission Date: 01/23/24 Discharge Date: 01/26/24 Hospital Course: Patient's clinical symptoms are improved. Patient abdominal pain has resolved. She will continue with oral antibiotics at discharge. Patient may benefit from outpatient colonoscopy. [facility]. Patient is bedbound but she does get out of bed with a Mg lift to a wheelchair which she will continue at discharge. At this time patient is clinically stable for discharge with outpatient follow-up. Patient has a pilonidal cyst and the wound will be managed with wound care going forward. Continue with antibiotics for outpatient follow-up. <Bobby Mendez - Last Filed: 01/27/24 00:42> Disposition: ROUTINE DISCHARGE Discharge Condition: GOOD Vital Signs/Physical Exam: Temp Pulse Resp BP Pulse Ox 97.8 F 73 16 139/66 92 01/26/24 11:00 01/26/24 11:00 01/26/24 11:00 01/26/24 11:00 01/26/24 11:00 General: In no apparent distress, Obese HEENT: Atraumatic, Normocephalic Neck: Supple, JVD not distended Respiratory: Normal air movement, Other (no supplemental Oxygen) Cardiovascular: Normal pulses, Regular rate/rhythm Capillary refill: <2 Seconds Gastrointestinal: Soft and benign Musculoskeletal: No clubbing, No swelling Integumentary: Other (pilonidal sinus) Neurological: Abnormal strength Lymphatics: No axilla or inguinal lymphadenopathy External genitalia: Deferred Rectal: Deferred Laboratory Data at Discharge: WBC 10.30 thou/uL (4.3-10.9) 01/26/24 03:44 Hgb 10.8 g/dL (12.0-15.0) L 01/26/24 03:44 Hct 32.7 % (36.0-45.0) L 01/26/24 03:44 Plt Count 518 thou/uL (152-406) H 01/26/24 03:44 PT 13.2 SECONDS (9.5-12.5) H 01/23/24 10:35 INR 1.21 01/23/24 10:35 APTT 25.3 SECONDS (24.3-36.9) 01/23/24 10:35 Sodium 136 mEq/L (136-145) 01/26/24 03:44 Potassium 3.6 mEq/L (3.5-5.1) 01/26/24 03:44 BUN 12 mg/dL (7-18) 01/26/24 03:44 Creatinine 0.64 mg/dL (0.55-1.02) 01/26/24 03:44 Glucose 125 mg/dL (74-106) H 01/26/24 03:44 Magnesium 1.7 mg/dL (1.6-2.4) 01/24/24 09:58 Total Bilirubin 0.3 mg/dL (0.2-1.0) 01/26/24 03:44 AST 12 U/L (15-37) L 01/26/24 03:44 ALT 23 U/L (13-56) 01/26/24 03:44 Alkaline Phosphatase 86 U/L (45-117) 01/26/24 03:44 Triglycerides 78 mg/dL (<150) 01/24/24 07:45 Cholesterol 84 mg/dL (<200) 01/24/24 07:45 HDL Cholesterol 34 mg/dL (40-60) L 01/24/24 07:45 Cholesterol/HDL Ratio 2.47 01/24/24 07:45 <Florentino,Saira Bill - Last Filed: 01/26/24 12:28> Vital Signs/Physical Exam: Temp Pulse Resp BP Pulse Ox 97.8 F 73 16 139/66 92 01/26/24 11:00 01/26/24 11:00 01/26/24 11:00 01/26/24 11:00 01/26/24 11:00 Laboratory Data at Discharge: WBC 10.30 thou/uL (4.3-10.9) 01/26/24 03:44 Hgb 10.8 g/dL (12.0-15.0) L 01/26/24 03:44 Hct 32.7 % (36.0-45.0) L 01/26/24 03:44 Plt Count 518 thou/uL (152-406) H 01/26/24 03:44 PT 13.2 SECONDS (9.5-12.5) H 01/23/24 10:35 INR 1.21 01/23/24 10:35 APTT 25.3 SECONDS (24.3-36.9) 01/23/24 10:35 Sodium 136 mEq/L (136-145) 01/26/24 03:44 Potassium 3.6 mEq/L (3.5-5.1) 01/26/24 03:44 BUN 12 mg/dL (7-18) 01/26/24 03:44 Creatinine 0.64 mg/dL (0.55-1.02) 01/26/24 03:44 Glucose 125 mg/dL (74-106) H 01/26/24 03:44 Magnesium 1.7 mg/dL (1.6-2.4) 01/24/24 09:58 Total Bilirubin 0.3 mg/dL (0.2-1.0) 01/26/24 03:44 AST 12 U/L (15-37) L 01/26/24 03:44 ALT 23 U/L (13-56) 01/26/24 03:44 Alkaline Phosphatase 86 U/L (45-117) 01/26/24 03:44 Triglycerides 78 mg/dL (<150) 01/24/24 07:45 Cholesterol 84 mg/dL (<200) 01/24/24 07:45 HDL Cholesterol 34 mg/dL (40-60) L 01/24/24 07:45 Cholesterol/HDL Ratio 2.47 01/24/24 07:45 <Bobby Mendez - Last Filed: 01/27/24 00:42> Diet: Lea Activity: Ad higinio <Saira Florentino - Last Filed: 01/26/24 12:28> <MendezBobby - Last Filed: 01/27/24 00:42> Home Medications: Ascorbic Acid [Vitamin C*] 500 mg PO DAILY 01/24/24 Aspirin Chewable [Aspirin Chewable*] 81 mg PO DAILY 01/24/24 Calcium Acetate [Phoslo*] 1 tab PO DAILY 01/24/24 Codeine/APAP [Tylenol #3*] 1 tab PO Q6HP PRN 01/24/24 Diclofenac Sodium/Misoprostol [Diclofenac-Misoprost 50-0.2 mg] 1 each PO Q8HP PRN 01/24/24 Furosemide [Lasix*] 20 mg PO DAILY 01/24/24 Levothyroxine Sodium [Synthroid] 50 mcg PO DAILY 01/24/24 Losartan Potassium 50 mg PO DAILY 01/24/24 Melatonin 5 mg PO BEDTIME 01/24/24 Metoprolol Succinate [Toprol Xl*] 25 mg PO DAILY 01/24/24 Multivitamin 1 each PO DAILY 01/24/24 Nystatin [Nystop] 30 gm TP BID 01/24/24 Pantoprazole [Protonix Tab*] 40 mg PO DAILY 01/24/24 Potassium Chloride 20 meq PO DAILY AT SUPPER 01/24/24 Pravastatin Sodium 40 mg PO BEDTIME 01/24/24 Simethicone [Mylicon*] 80 mg PO BEDTIME 01/24/24 Zinc Sulfate [Zinc Sulfate*] 220 mg PO DAILY 01/24/24 lisinopriL [Lisinopril] 20 mg PO DAILY 01/24/24 Hari [Hari*] 1 pkt PO BID #14 packet 01/26/24 Levofloxacin [Levaquin] 500 mg PO DAILY #5 tab 01/26/24 metroNIDAZOLE [Flagyl] 500 mg PO TID #12 cap 01/26/24 New Medications: metroNIDAZOLE [Flagyl] 500 mg PO TID #12 cap Hari [Hari*] 1 pkt PO BID #14 packet Levofloxacin [Levaquin] 500 mg PO DAILY #5 tab Physician Discharge Instructions: Okay to DC IV and DC back to group home; [facility] Ms. Blake does have a pilonidal pit with sanguineous discharge that may need attention by a surgeon if it becomes infected Follow-up with primary care provider in 1 to 2 weeks Please call the inpatient unit for any questions or concerns regarding hospital stay Return to the ER for worsening symptoms Please call Dr. Mendez at [phone] if any questions regarding hospital stay Please call nursing station at [phone] if any nursing or medication questions Return to the emergency room if symptoms worsen Continue home medications. Will add Levaquin 500mg po daily x 5 days and Flagyl 500mg po TID x 4 more days to complete antibiotic therapy Followup: Ervin Chawla FNP [Primary Care Provider] -
--- NOTE | 2024-01-27 17:42 | EKG ---
Test Date: 2024-01-23 Test Time: 10:40:28 Curling Machine Operator: BP MEASUREMENT RESULTS: Intervals: Rate: 56 AR: QRSD: 100 QT: 470 QTc: 453 [place]: P: AR: QRS: -40 T: -6 INTERPRETIVE STATEMENTS: Junctional rhythm Left axis deviation Nonspecific ST abnormality Abnormal ECG No previous ECG available for comparison Electronically Signed On 01-27-24 17:28:34 CDT by Quincy Avelar
== END 2024-01-26 18:00 | DRG 871 ==
LOC: ER 09:17 → ERHOLD 14:20 → 2ND 18:46
PROVIDERS: ADMIT Hospitalist; ATTEND Hospitalist
DX: A41.9 Sepsis, unspecified organism (principal); L89.153 Pressure ulcer of sacral region, stage 3; L89.893 Pressure ulcer of other site, stage 3; Z68.43 Body mass index [BMI] 50.0-59.9, adult; E66.01 Morbid (severe) obesity due to excess calories; E78.5 Hyperlipidemia, unspecified; I10 Essential (primary) hypertension; E03.9 Hypothyroidism, unspecified; K52.9 Noninfective gastroenteritis and colitis, unspecified; M81.0 Age-related osteoporosis without current pathological fracture; Z66 Do not resuscitate; Z88.0 Allergy status to penicillin; Z85.42 Personal history of malignant neoplasm of other parts of uterus; Z90.49 Acquired absence of other specified parts of digestive tract; Z74.01 Bed confinement status; Z79.52 Long term (current) use of systemic steroids; Z79.890 Hormone replacement therapy; Z79.899 Other long term (current) drug therapy; Z90.710 Acquired absence of both cervix and uterus
CPT/HCPCS: 36415; 74177; 80053; 80061; 81001; 82947; 83605; 83735; 84439; 84443; 85025; 85044; 85610; 85730; 87040; 87070; 87086; 87088; 87205; 93005; 94760; 96361; 96365; 96366; 96375; 97110; 97163; 97530; 99285; J0692; J1650; J1940; J2405; J7030; Q9967

== ENCOUNTER 2024-02-05 15:38 | Inpatient (IN) | payer OTHER ==
--- NOTE | 2024-02-05 16:37 | RAD REPORT ---
[facility] 4[facility]27 pm CLINICAL HISTORY: COUGH COMPARISON: CHEST PA AND LAT 2 VIEW dated 08/11/2015 TECHNIQUE: Portable AP view of the chest. FINDINGS: Decreased inspiratory effort. Minimal interstitial prominence which could be related to in adequate inspiration. The lungs are otherwise clear. No pneumothorax or effusion. The cardiomediasti nal contours are unremarkable. IMPRESSION: No acute cardiopulmonary process.
[2024-02-05] MEDS ORDERED: NA CHLORIDE 0.9% 1,000 ML ONE (16:38)
[2024-02-05 16:49] LABS: Absolute Eosinophils 0.2 K/uL (0-0.5); Absolute Lymphocytes (CBC) 0.7 K/uL (0.7-4.9); Absolute Monocytes 1.3 K/uL (0.1-1.3); Absolute Neutrophil 5.3 K/uL (1.8-8.0); Basophils % 0.6 % (0-1.3); Eosinophils % 2.9 % (0-4.4); Hematocrit 32.6 % (36.0-45.0); Hemoglobin 10.5 g/dL (12.0-15.0); MCH 26.3 pg (27.0-35.0); MCHC 32.2 g/dL (32.0-36.0); MCV 81.7 fL (80-100); MPV 6.9 fL (7.6-11.3); Monocytes % 16.7 % (3.3-12.3); Neutrophils % 70.8 % (41.7-73.7); Platelets 522 thou/uL (152-406); RBC Red Blood Cell Count 3.99 M/uL (3.86-4.86); Red Cell Distribution Width 16.2 % (12.1-15.2)
[2024-02-05 16:50] LABS: PT Prothrombin Time 17.4 SECONDS (9.5-12.5); Protime INR 1.6
[2024-02-05 17:03] LABS: Albumin 1.8 g/dL (3.4-5.0); Albumin/Globulin Ratio 0.4 (1.1-1.8); Anion Gap 8.3 mEq/L (5.0-15.0); Bilirubin Direct 0.2 mg/dL (0-0.2); Bilirubin Indirect, Calculated 0.1 mg/dL (0.2-0.8); Bilirubin Total 0.3 mg/dL (0.2-1.0); Globulin 4.9 g/dL (2.3-3.5); Magnesium 1.6 mg/dL (1.6-2.4); Potassium 3.3 mEq/L (3.5-5.1); Protein, Total 6.7 g/dL (6.4-8.2); Troponin High Sensitivity 12.3 pg/mL (<58.9)
[2024-02-05 18:21] LABS: Specific Gravity 1.019 (1.005-1.030); Sqamous Epithelial <5 /HPF (None Seen); Urine Bacteria <20 /HPF (<20); Urine Bilirubin NEGATIVE (Negative); Urine Blood Negative (Negative); Urine Clarity Extremely Turbid (Clear); Urine Color Yellow (Yellow); Urine Culture Reflex Order NOT NEEDED; Urine Glucose NEGATIVE (Negative); Urine Ketones NEGATIVE (Negative); Urine Microscopic Reflex YN ORDER UMIC; Urine Mucus Slight /HPF (None Seen); Urine Nitrite NEGATIVE (Negative); Urine Protein TRACE (Negative); Urine RBC <5 /HPF (None Seen); Urine Urobilinogen Normal (Normal); Urine WBC <5 /HPF (<5)
--- NOTE | 2024-02-05 18:28 | EDPHYS ---
Physician Documentation [facility] Name: Jennifer Blake Age: 83 yrs Sex: Female : 1940 Arrival Date: 02/05/2024 Time: 15:38 Bed 15 Private MD: ED Physician Winston Mayo HPI: 02/04 18:18 This 83 yrs old Female presents to ER via EMS with complaints of Diarrhea, isidra Wound Check. 18:18 The patient presents to the emergency department with diarrhea, abdominal pain, of the isidra right lower quadrant and left lower quadrant. Onset: The symptoms/episode began/occurred 3 day(s) ago. Possible causes: unknown, flare up of bowel problem. The symptoms are aggravated by nothing. The symptoms are alleviated by remaining still. Associated signs and symptoms: Pertinent positives: diarrhea, vaginal discharge. Severity of symptoms: At their worst the symptoms were moderate in the emergency department the symptoms are unchanged. The patient has experienced similar episodes in the past, several times. Historical: - Allergies: 15:46 PENICILLINS; db - PMHx: 15:46 home O2; Hypercholesterolemia; Thyroid problem; Hypertensive disorder; db - Immunization history:: Adult Immunizations unknown. - Social history:: Smoking status: Patient denies any tobacco usage or history of. ROS: 18:19 Constitutional: Negative for fever, chills, and weight loss, Eyes: Negative for injury, isidra pain, redness, and discharge, ENT: Negative for injury, pain, and discharge, Neck: Negative for injury, pain, and swelling, Cardiovascular: Negative for chest pain, palpitations, and edema, Respiratory: Negative for shortness of breath, cough, wheezing, and pleuritic chest pain, Back: Negative for injury and pain, MS/Extremity: Negative for injury and deformity, Skin: Negative for injury, rash, and discoloration, Neuro: Negative for headache, weakness, numbness, tingling, and seizure, Psych: Negative for depression, anxiety, suicide ideation, homicidal ideation, and hallucinations, Allergy/Immunology: Negative for hives, rash, and allergies, Endocrine: Negative for neck swelling, polydipsia, polyuria, polyphagia, and marked weight changes, Hematologic/Lymphatic: Negative for swollen nodes, abnormal bleeding, and unusual bruising, 18:19 Abdomen/GI: Positive for abdominal pain, diarrhea, abdominal cramps, abdominal distension, rectal pain, 18:19 : Positive for urinary symptoms, pelvic pain, flank pain, urinary frequency, small amounts, foul smelling urine, right labia, ulcers, both with erythema, Exam: 18:19 Constitutional: This is a well developed, well nourished patient who is awake, alert, isidra and in no acute distress. Head/Face: Normocephalic, atraumatic. Eyes: Pupils equal round and reactive to light, extra-ocular motions intact. Lids and lashes normal. Conjunctiva and sclera are non-icteric and not injected. Cornea within normal limits. Periorbital areas with no swelling, redness, or edema. ENT: Nares patent. No nasal discharge, no septal abnormalities noted. Tympanic membranes are normal and external auditory canals are clear. Oropharynx with no redness, swelling, or masses, exudates, or evidence of obstruction, uvula midline. Mucous membranes moist. Neck: Trachea midline, no thyromegaly or masses palpated, and no cervical lymphadenopathy. Supple, full range of motion without nuchal rigidity, or vertebral point tenderness. No Meningismus. Chest/axilla: Normal chest wall appearance and motion. Nontender with no deformity. No lesions are appreciated. Cardiovascular: Regular rate and rhythm with a normal S1 and S2. No gallops, murmurs, or rubs. Normal PMI, no JVD. No pulse deficits. Respiratory: Lungs have equal breath sounds bilaterally, clear to auscultation and percussion. No rales, rhonchi or wheezes noted. No increased work of breathing, no retractions or nasal flaring. Back: No spinal tenderness. No costovertebral tenderness. Full range of motion. Skin: Warm, dry with normal turgor. Normal color with no rashes, no lesions, and no evidence of cellulitis. MS/ Extremity: Pulses equal, no cyanosis. Neurovascular intact. Full, normal range of motion. Neuro: Awake and alert, GCS 15, oriented to person, place, time, and situation. Cranial nerves II-XII grossly intact. Motor strength 5/5 in all extremities. Sensory grossly intact. Cerebellar exam normal. Normal gait. Psych: Awake, alert, with orientation to person, place and time. Behavior, mood, and affect are within normal limits. 18:19 Abdomen/GI: Inspection: distension, Bowel sounds: normal, Palpation: mild abdominal tenderness, moderate abdominal tenderness, in the right lower quadrant and left lower quadrant, Rectal exam: is unremarkable, Liver: no appreciated palpable abnormalities, Hernia: not appreciated, 18:19 : CVA tenderness, is absent, Pelvic Exam: External exam: erythema is noted, reveals ulcerations on external genitalia, Bladder: is normal, Rectal exam: is normal, Rectal tone: Perineal sensation Sexual behavior: the patient is not sexually active, needs exam under anestheia with gs and animal geneticist, 18:24 ECG was reviewed by the Attending Physician. isidra Vital Signs: 15:35 BP 134 / 56; Pulse 80; Resp 20; Temp 98.6; Pulse Ox 92% on R/A; Weight 102.06 kg; db Height 5 ft. 1 in. ; 16:30 BP 107 / 50; Pulse 79; Resp 24; Pulse Ox 93% on R/A; db 17:30 BP 124 / 64; Pulse 82; Resp 24; Pulse Ox 95% on R/A; db 18:07 BP 128 / 51; Pulse 80; Resp 28; Pulse Ox 94% on R/A; db 19:34 BP 139 / 56; Pulse 80; Resp 17 S; Pulse Ox 97% on R/A; ha1 20:01 BP 140 / 54; Pulse 77; Resp 17; Pulse Ox 98% on R/A; ha1 21:00 BP 142 / 81; Pulse 77; Resp 18 S; Pulse Ox 95% on R/A; ha1 15:35 Body Mass Index 42.51 (102.06 kg, 154.94 cm) db Brad Coma Score: 17:00 Eye Response: spontaneous(4). Motor Response: obeys commands(6). Verbal Response: db oriented(5). Total: 15. MDM: 15:47 Patient medically screened. isidra 18:23 Differential diagnosis: Nonspecific abd pain, pancreatitis, diverticulitis, viral isidra gastroenteritis, gastroenteritis, cervicitis, malignancy, nonspecific abdominal pain. Data reviewed: vital signs, nurses notes, EMS record, lab test result(s), EKG, radiologic studies, CT scan, plain films. Consideration of Admission/Observation Patient was admitted/placed on observation. Escalation of care including admission/observation considered. I considered the following discharge prescriptions or medication management in the emergency department Medications were administered in the Emergency Department. See MAR. Independent interpretation of the following test(s) in the Emergency Department EKG: See my EKG interpretation above. Test considered but Not performed: Ultrasound no abd usg. Historians other than the Patient: EMS: ems well informed. Care significantly affected by the following chronic conditions: Hypertension, Obesity, Cancer, high cholesterol. Counseling: I had a detailed discussion with the patient and/or guardian regarding the historical points, exam findings, and any diagnostic results supporting the discharge/admit diagnosis, lab results, radiology results, the need for further work-up and treatment in the hospital. 02/04 15:49 Order name: Basic Metabolic Panel; Complete Time: 17:43 isidra 02/04 15:49 Order name: CBC with Diff; Complete Time: 17:43 02/04 15:49 Order name: LFT's; Complete Time: 17:43 02/04 15:49 Order name: Magnesium; Complete Time: 17:43 02/04 15:49 Order name: NT PRO-BNP; Complete Time: 17:43 02/04 15:49 Order name: PT-INR; Complete Time: 17:43 02/04 15:49 Order name: Troponin HS; Complete Time: 17:43 02/04 15:49 Order name: Lipase; Complete Time: 17:43 isidra 02/04 15:49 Order name: Urinalysis w/ reflexes; Complete Time: 18:27 isidra 02/04 20:29 Order name: CBC with Automated Diff MS 02/04 20:29 Order name: CBC with Automated Diff EDMS 02/04 20:29 Order name: Comprehensive Metabolic Panel EDGA 02/04 20:29 Order name: Comprehensive Metabolic Panel EDMS 02/04 20:29 Order name: Magnesium EDMS 02/04 20:30 Order name: Magnesium EDMS 02/04 20:30 Order name: Phosphorus EDMS 02/04 20:30 Order name: Phosphorus EDMS 02/04 15:49 Order name: XRAY Chest (1 view); Complete Time: 17:43 isidra 02/04 15:49 Order name: CT Abd/Pelvis - Without Contrast isidra 02/04 15:49 Order name: EKG; Complete Time: 15:49 02/04 20:24 Order name: CONS Physician Consult GA 02/04 15:49 Order name: Cardiac monitoring; Complete Time: 16:38 02/04 15:49 Order name: EKG - Nurse/Tech; Complete Time: 16:38 [facility] 02/04 15:49 Order name: IV Saline Lock; Complete Time: 16:39 [facility] 02/04 15:49 Order name: Labs collected and sent; Complete Time: 16:39 [facility] 02/04 15:49 Order name: O2 Per Protocol; Complete Time: 16:39 [facility] 02/04 15:49 Order name: O2 Sat Monitoring; Complete Time: 16:39 [facility] EC:24 Rate is 80 beats/min. Rhythm is regular. QRS [place] is Normal. OK interval is normal. QRS isidra interval is normal. QT interval is normal. No Q waves. T waves are Normal. No ST changes noted. Clinical impression: NSR w/ Non-specific ST/T Changes and No evidence of ischemia. Interpreted by me. Reviewed by me. Administered Medications: 16:38 Drug: NS 0.9% IV 1000 ml IV at 1 bolus Per protocol; 1000 mL bolus Route: IV; Rate: 1 db bolus; Site: right antecubital; 21:18 Follow up: Response: No adverse reaction; IV Status: Completed infusion; IV Intake: ha1 1000ml 19:15 Drug: Rocephin IV 2 grams IV at per protocol once; Given slow IV push per [employer]Scale ha1 instructions Route: IV; Rate: per protocol; Site: right forearm; 19:30 Follow up: Response: No adverse reaction; IV Status: Completed infusion; IV Intake: [id number] 19:30 Drug: metroNIDAZOLE IVPB 500 mg 100 ml IVPB at 200 ml/hr once over 30 mins Volume: 100 ha1 ml; Route: IVPB; Rate: 200 ml/hr; Infused Over: 30 mins; Site: right forearm; 20:00 Follow up: Response: No adverse reaction; IV Status: Completed infusion; IV Intake: ha1 100ml 19:47 Drug: Potassium PO Effervescent Tablet 25 mEq PO once; dissolve in 4 ounces of water or ha1 juice Route: PO; 20:00 Follow up: Response: No adverse reaction ha1 20:25 Drug: Ciprofloxacin IVPB 400 mg 200 ml IVPB once over 60 mins Volume: 200 ml; Route: ha1 IVPB; Infused Over: 60 mins; Site: right forearm; 20:40 Follow up: Response: No adverse reaction; IV Status: Infusion continued ha1 21:21 Follow up: Response: No adverse reaction; IV Status: Completed infusion; IV Intake: ha1 200ml Disposition Summary: 02/05/24 18:27 Hospitalization Ordered Notes: Hospitalization Status: Inpatient Admission isidra Provider: Fabian Shrestha cha Location: Telemetry/MedSurg (Inpatient) isidra Condition: Fair isidra Problem: new isidra Symptoms: have improved isidra Bed/Room Type: Standard [facility] Room Assignment: 408(02/05/24 20:41) wm Diagnosis - Left sided colitis isidra - Abdominal pain, unspecified isidra - Obesity, unspecified - sigmoid isidra - Hypokalemia isidra - Unspecified kidney failure isidra Forms: - Medication Reconciliation Form isidra - SBAR form isidra - Leadership Thank You Letter isidra Signatures: Dispatcher [employer] EDWinston Dial MD MD cha Marsh, Wendy Lisa Orlando RN RN ha1 Katia Bland RN RN db Corrections: (The following items were deleted from the chart) 20:41 18:27 isidra
--- NOTE | 2024-02-05 18:28 | ER ---
Nurse's Notes [facility] Name: Jennifer Blake Age: 83 yrs Sex: Female : 1940 Arrival Date: 02/05/2024 Time: 15:38 Bed 15 Private MD: Diagnosis: Left sided colitis;Abdominal pain, unspecified;Obesity, unspecified-sigmoid;Hypokalemia;Unspecified kidney failure Presentation: 02/04 15:35 Chief complaint: EMS states: PT COMPLAINS OF DIARRHEA. FACILITY CALLED FOR EVAL OF db PERINEUM APPEARS TO HAVE OOZING AND DRAINAGE. FROM [facility]. PT IS NON-AMBULATORY. Coronavirus screen: Client denies travel out of the [place] in the last 14 days. At this time, the client does not indicate any symptoms associated with coronavirus-19. Ebola Screen: Patient negative for fever greater than or equal to 101.5 degrees Fahrenheit, and additional compatible Ebola Virus Disease symptoms Patient denies exposure to infectious person. Patient denies travel to an Ebola-affected area in the 21 days before illness onset. No symptoms or risks identified at this time. Initial Sepsis Screen: Does the patient meet any 2 criteria? No. Patient's initial sepsis screen is negative. Does the patient have a suspected source of infection? No. Patient's initial sepsis screen is negative. Risk Assessment: Do you want to hurt yourself or someone else? Patient reports no desire to harm self or others. Onset of symptoms was February 05, 2024. 15:35 Method Of Arrival: EMS: [facility] db 15:35 Acuity: MARIAH 3 db Triage Assessment: 15:46 General: Appears in no apparent distress. comfortable, Behavior is calm, cooperative. db Pain: Denies pain. Neuro: Level of Consciousness is awake, alert, obeys commands, Oriented to person, place, time, situation. Respiratory: Reports pain with cough Airway is patent Respiratory effort is even, unlabored, Respiratory pattern is regular, symmetrical, Breath sounds are coarse bilaterally. Breath sounds with wheezes bilaterally. GI: Reports diarrhea. 15:46 Cardiovascular: No deficits noted. : Reports incontinence. Derm: No deficits noted. db No signs and/or symptoms reported regarding the dermatologic system. Historical: - Allergies: 15:46 PENICILLINS; db - PMHx: 15:46 home O2; Hypercholesterolemia; Thyroid problem; Hypertensive disorder; db - Immunization history:: Adult Immunizations unknown. - Social history:: Smoking status: Patient denies any tobacco usage or history of. Screenin:00 [facility] ED Fall Risk Assessment (Adult) History of falling in the last 3 months, db including since admission No falls in past 3 months (0 pts) Confusion or Disorientation No (0 pts) Intoxicated or Sedated No (0 pts) Impaired Gait Yes (1 pt) Mobility Assist Device Used Yes (1 pt) Altered Elimination Yes (1 pt) Score/Fall Risk Level 3 or more points = High Risk Oriented to surroundings, Maintained a safe environment, Hourly rounding (assess needs \T\ fall precautionary measures) done. Abuse screen: Denies threats or abuse. Denies injuries from another. Nutritional screening: No deficits noted. Tuberculosis screening: No symptoms or risk factors identified. Assessment: 15:48 Reassessment: Patient appears in no apparent distress at this time. Patient and/or db family updated on plan of care and expected duration. Pain level reassessed. Patient is alert, oriented x 3, equal unlabored respirations, skin warm/dry/pink. General: Appears in no apparent distress. comfortable, Behavior is calm, cooperative. Pain: Complains of pain in abdomen. Neuro: Level of Consciousness is awake, alert, obeys commands, Oriented to person, place, time, situation. Respiratory: Airway is patent Respiratory effort is even, unlabored, Respiratory pattern is regular, symmetrical. GI: Reports diarrhea. 17:50 Reassessment: STRAIGHT CATH PERFORMED. NOTED PURULENT DRAINAGE FROM VAGINAL AREA. db NOTIFIED DR. KHALIL. DR. KHALIL CAME TO BEDSIDE FOR ASSESSMENT. Derm: Abscess located on pelvis. 18:00 Reassessment: PURWICK PLACED. PATIENT CLEANED. PATIENT IN NAD. db 19:15 General: Appears comfortable, Behavior is calm, cooperative. Pain: Complains of pain in ha1 VAGINAL AREA Pain does not radiate. Pain at worst was 9 out of 10 on a pain scale. Quality of pain is described as burning, Alleviated by medications. Neuro: Level of Consciousness is awake, alert, obeys commands, Oriented to person, place, time, situation. Cardiovascular: Patient's skin is warm and dry. Respiratory: Airway is patent Respiratory effort is even, unlabored, Respiratory pattern is regular, symmetrical. GI: Abdomen is round non-distended, obese. : Vaginal discharge is yellow, malodorous, Lesions noted Swelling noted on labia Reports pain IN VAGINAL AREA. Musculoskeletal: Circulation, motion, and sensation intact. Range of motion: limited in RIGHT LEG. 19:52 Reassessment: No changes from previously documented assessment. Patient and/or family ha1 updated on plan of care and expected duration. Pain level reassessed. Patient is alert, oriented x 3, equal unlabored respirations, skin warm/dry/pink. 20:50 Reassessment: Patient and/or family updated on plan of care and expected duration. Pain ha1 level reassessed. FAX SHEET SENT. 21:10 Reassessment: CONFIRMED FAX SHEET RECEIVED. ha1 21:49 Reassessment: Patient and/or family updated on plan of care and expected duration. Pain ha1 level reassessed. Patient is alert, oriented x 3, equal unlabored respirations, skin warm/dry/pink. Vital Signs: 15:35 BP 134 / 56; Pulse 80; Resp 20; Temp 98.6; Pulse Ox 92% on R/A; Weight 102.06 kg; db Height 5 ft. 1 in. ; 16:30 BP 107 / 50; Pulse 79; Resp 24; Pulse Ox 93% on R/A; db 17:30 BP 124 / 64; Pulse 82; Resp 24; Pulse Ox 95% on R/A; db 18:07 BP 128 / 51; Pulse 80; Resp 28; Pulse Ox 94% on R/A; db 19:34 BP 139 / 56; Pulse 80; Resp 17 S; Pulse Ox 97% on R/A; ha1 20:01 BP 140 / 54; Pulse 77; Resp 17; Pulse Ox 98% on R/A; ha1 21:00 BP 142 / 81; Pulse 77; Resp 18 S; Pulse Ox 95% on R/A; ha1 15:35 Body Mass Index 42.51 (102.06 kg, 154.94 cm) db Vitals: 18:17 Cardiac Rhythm Assessment Regular. db Stryker Coma Score: 17:00 Eye Response: spontaneous(4). Motor Response: obeys commands(6). Verbal Response: db oriented(5). Total: 15. ED Course: 15:39 Patient arrived in ED. db 15:46 Triage completed. db 15:46 Arm band placed on Patient placed in an exam room, on a stretcher. db 15:47 Winston Khalil MD is Attending Physician. isidra 16:18 Katia Bland, RN is Primary Nurse. db 16:25 Missed attempt(s): 22 gauge in right forearm. Bleeding controlled, band aid applied, db catheter tip intact. 16:29 XRAY Chest (1 view) In Process Unspecified. EDMS 16:33 Initial lab(s) drawn, by me, sent to lab. EKG done, reviewed by Winston Khalil MD. db Inserted saline lock: 22 gauge in right antecubital area, using aseptic technique. Blood collected. 17:[address] hb 17:29 CT Abd/Pelvis - Without Contrast In Process Unspecified. EDMS 17:50 Straight cath inserted, using sterile technique, 16 Fr. Specimen obtained. Patient db tolerated well. 18:04 Warm blanket given. [email or web address] 18:04 Urine collected: straight cath specimen, clear. [email or web address] 18:25 Fabian Shrestha is Hospitalizing Provider. isidra 18:31 Missed attempt(s): 22 gauge in left wrist. Bleeding controlled, band aid applied, jg11 catheter tip intact. 19:00 Patient has correct armband on for positive identification. Placed in gown. Bed in low db position. Call light in reach. Side rails up X2. Report given to ROCCO CALDERON. Client placed on continuous cardiac and pulse oximetry monitoring. NIBP monitoring applied. alarm security or surveillance monitor on. Pulse ox on. NIBP on. 19:10 Door closed. Noise minimized. Warm blanket given. Pillow given. ha1 19:20 Cleaned of incontinence. ha1 19:46 Lisa Orlando, RN is Primary Nurse. ha1 21:30 Cleaned of incontinence. ha1 21:47 No provider procedures requiring assistance completed. Patient admitted, IV remains in ha1 place. 21:51 Provided Education on: need for admit. ha1 Administered Medications: 16:38 Drug: NS 0.9% IV 1000 ml IV at 1 bolus Per protocol; 1000 mL bolus Route: IV; Rate: 1 db bolus; Site: right antecubital; 21:18 Follow up: Response: No adverse reaction; IV Status: Completed infusion; IV Intake: ha1 1000ml 19:15 Drug: Rocephin IV 2 grams IV at per protocol once; Given slow IV push per pharmarcy ha1 instructions Route: IV; Rate: per protocol; Site: right forearm; 19:30 Follow up: Response: No adverse reaction; IV Status: Completed infusion; IV Intake: [id number] 19:30 Drug: metroNIDAZOLE IVPB 500 mg 100 ml IVPB at 200 ml/hr once over 30 mins Volume: 100 ha1 ml; Route: IVPB; Rate: 200 ml/hr; Infused Over: 30 mins; Site: right forearm; 20:00 Follow up: Response: No adverse reaction; IV Status: Completed infusion; IV Intake: ha1 100ml 19:47 Drug: Potassium PO Effervescent Tablet 25 mEq PO once; dissolve in 4 ounces of water or ha1 juice Route: PO; 20:00 Follow up: Response: No adverse reaction ha1 20:25 Drug: Ciprofloxacin IVPB 400 mg 200 ml IVPB once over 60 mins Volume: 200 ml; Route: ha1 IVPB; Infused Over: 60 mins; Site: right forearm; 20:40 Follow up: Response: No adverse reaction; IV Status: Infusion continued ha1 21:21 Follow up: Response: No adverse reaction; IV Status: Completed infusion; IV Intake: ha1 200ml Medication: 18:17 VIS not applicable for this client. db Intake: 19:30 IV: 50ml; Total: 50ml. ha1 20:00 IV: 100ml; Total: 150ml. ha1 21:18 IV: 1000ml; Total: 1150ml. ha1 21:21 IV: 200ml; Total: 1350ml. ha1 Outcome: 18:27 Decision to Hospitalize by Provider. isidra 21:51 Admitted to Tele accompanied by veronica, via stretcher, room 408, with chart, Report ha1 called to ROCCO Brand 21:51 Condition: stable 21:51 Discharge instructions given to patient, Instructed on the need for admit, Demonstrated understanding of instructions, 21:52 Patient left the ED. ha1 Signatures: Dispatcher [employer] Winston Ball MD MD cha Baxter, Heather, RN RN hb Ayala, Heidy, RN RN Katia Moreno RN RN db Gonzalez, Jordan [email or web address]
[2024-02-05] MEDS ORDERED: CIPROFLOXACIN 400mg IV 400 MG/200 ML BAG IV ONE (18:55)
[2024-02-05] MEDS ORDERED: POTASSIUM 25 MEQ EFFERV TAB ONE (18:55)
[2024-02-05] MEDS ORDERED: CEFTRIAXONE 2000 MG/VIAL ONE (18:55)
[2024-02-05] MEDS ORDERED: METRONIDAZOLE 500mg IVPB 500 MG/100 ML BAG IV ONE (18:56)
[2024-02-05] MEDS ORDERED: NA CHLORIDE 0.9% 50 ML ONE (18:56)
[2024-02-05] MEDS ORDERED: ACETAMINOPHEN 325 MG TABLET PO PRN (20:22)
[2024-02-05] MEDS ORDERED: ONDANSETRON 4 MG/2 ML VIAL IV PRN (20:22)
--- NOTE | 2024-02-05 20:33 | P.HP ---
Certification for Inpatient Patient admitted to: Inpatient With expected LOS: >2 Midnights Practitioner: I am a practitioner with admitting privileges, knowledge of patient current condition, hospital course, and medical plan of care. Services: Services provided to patient in accordance with Admission requirements found in Title 42 Section 412.3 of the Code of Federal Regulations Patient History Date of Service: 02/05/24 Reason for admission: Abdominal pain and diarrhea History of Present Illness: 83-year-old man with a history of hypothyroidism, morbid obesity, functional q uadriplegia presented to the emergency department with a complaint of abdominal pain and diarrhea. Patient was recently discharged from hospital for similar symptoms. CT abdomen and pelvis done in the emergency department demonstrated rectosigmoid colitis similar to previous findings. Patient has a copious vaginal discharge which is previously deemed related to pilonidal cyst. Patient denies any fever or chills. She denies any vomiting but endorses nausea. Blood work shows no leukocytosis. Patient does not meet criteria for sepsis. She is hospitalized for further management. Allergies Penicillins Allergy (Verified 01/24/24 00:24) unknown Home Medications: Ascorbic Acid [Vitamin C*] 500 mg PO DAILY 01/24/24 Aspirin Chewable [Aspirin Chewable*] 81 mg PO DAILY 01/24/24 Calcium Acetate [Phoslo*] 1 tab PO DAILY 01/24/24 Codeine/APAP [Tylenol #3*] 1 tab PO Q6HP PRN 01/24/24 Diclofenac Sodium/Misoprostol [Diclofenac-Misoprost 50-0.2 mg] 1 each PO Q8HP PRN 01/24/24 Furosemide [Lasix*] 20 mg PO DAILY 01/24/24 Levothyroxine Sodium [Synthroid] 50 mcg PO DAILY 01/24/24 Losartan Potassium 50 mg PO DAILY 01/24/24 Melatonin 5 mg PO BEDTIME 01/24/24 Metoprolol Succinate [Toprol Xl*] 25 mg PO DAILY 01/24/24 Multivitamin 1 each PO DAILY 01/24/24 Nystatin [Nystop] 30 gm TP BID 01/24/24 Pantoprazole [Protonix Tab*] 40 mg PO DAILY 01/24/24 Potassium Chloride 20 meq PO DAILY AT SUPPER 01/24/24 Pravastatin Sodium 40 mg PO BEDTIME 01/24/24 Simethicone [Mylicon*] 80 mg PO BEDTIME 01/24/24 Zinc Sulfate [Zinc Sulfate*] 220 mg PO DAILY 01/24/24 lisinopriL [Lisinopril] 20 mg PO DAILY 01/24/24 Hari [Hari*] 1 pkt PO BID #14 packet 01/26/24 Levofloxacin [Levaquin] 500 mg PO DAILY #5 tab 01/26/24 metroNIDAZOLE [Flagyl] 500 mg PO TID #12 cap 01/26/24 Levofloxacin [Levaquin] 500 mg PO DAILY #5 tab 01/31/24 metroNIDAZOLE [Flagyl] 500 mg PO TID #12 tab 01/31/24 - Past Medical/Surgical History Diabetic: No -: HTN -: HLD -: Hypothyroid -: Osteoarthritis -: uterine ca -: O2 dependent -: cholecystectomy -: wrist surgery -: knee surgery -: hysterectomy -: hernia repair Psychosocial/ Personal History: , lives at [facility] - Family History Family History: Reviewed- Non-Contributory - Social History Alcohol use: No CD- Drugs: No Caffeine use: Yes Review of Systems Other: Except as documented, all other systems reviewed and negative. Physical Examination - Physical Exam General: Alert, In no apparent distress, Oriented x3, Obese (Morbidly obese) HEENT: Mucous membr. moist/pink Neck: JVD not distended Respiratory: Clear to auscultation bilaterally, Normal air movement Cardiovascular: No edema (Bilateral lower extremities), Regular rate/rhythm, Normal S1 S2 Capillary refill: <2 Seconds Gastrointestinal: Normal bowel sounds, Soft and benign, Other (Obese abdomen), Distended (Mildly distended) Musculoskeletal: Swelling (Bilateral legs), Other (Bilateral lower extremity venous stasis dermatitis) Integumentary: No cyanosis, Other (Lower extremity venous stasis dermatitis) Neurological: Normal speech, Other (No focal motor deficit) Lymphatics: No axilla or inguinal lymphadenopathy - Studies Laboratory Data (last 24 hrs) 02/05/24 02/05/24 02/05/24 16:33 16:33 16:33 WBC 7.50 Hgb 10.5 L Hct 32.6 L Plt Count 522 H PT 17.4 H INR 1.60 Sodium 138 Potassium 3.3 L BUN 22 H Creatinine 1.21 H Glucose 125 H Magnesium 1.6 Total Bilirubin 0.3 AST 22 ALT 16 Alkaline Phosphatase 101 Lipase 11 L Assessment and Plan - Problems (Diagnosis) (1) Ulcerative colitis, rectosigmoid Current Visit: Yes Status: Acute (2) Purulent vaginal discharge Current Visit: Yes Status: Acute (3) Morbid obesity Current Visit: Yes Status: Acute (4) Functional quadriplegia Current Visit: Yes Status: Acute (5) Acute kidney injury Current Visit: Yes Status: Acute - Plan Rectosigmoid colitis Purulent Vaginal discharge Purulent vaginal discharge of unknown source. No abscess or cyst reported by the CT scan. Admits to the medical floor Second hospitalization for similar symptoms. Aggressive antibiotics-IV cefepime and Flagyl Consult to general surgery. Patient may need examination under anesthesia/dye study to rule out a fistula. Acute kidney injury Hold home Lasix Monitor renal function. Brief IV fluid rehydration. DVT prophylaxis: Heparin SQ. - Advance Directives Does patient have a Living Will: No Does patient have a Durable POA for Healthcare: Yes
[2024-02-05] MEDS: CEFEPIME 1 GM in NA CHLORIDE 0.9% 100 ML IV SCH (23:00)
[2024-02-05 23:05] VITALS: BMI 53.7
[2024-02-06] MEDS: METRONIDAZOLE 500mg IVPB 500 MG/100 ML BAG IV ONE (00:52)
[2024-02-06] MEDS: METRONIDAZOLE 250mg IVPB 250 MG/50 ML BAG IV SCH (00:53)
[2024-02-06] MEDS: HEPARIN 5000 UNIT/ML 1 ML VIAL SQ SCH (00:53)
[2024-02-06 06:24] LABS: C.diff Antigen/Toxin Ag neg : Tox neg (NEG : NEG); CDIFF INTERNAL NEG CONTROL White Background (WHITE BKGD); STOOL CONSISTENCY Liquid/Semi-Solid
[2024-02-06 06:46] LABS: Absolute Eosinophils 0.2 K/uL (0-0.5); Absolute Lymphocytes (CBC) 0.8 K/uL (0.7-4.9); Absolute Monocytes 1.3 K/uL (0.1-1.3); Absolute Neutrophil 3.7 K/uL (1.8-8.0); Basophils % 0.4 % (0-1.3); Eosinophils % 3.9 % (0-4.4); Hemoglobin 10.2 g/dL (12.0-15.0); Lymphocytes % 13.6 % (15.3-44.8); MCH 26.7 pg (27.0-35.0); MCHC 32.9 g/dL (32.0-36.0); MPV 6.9 fL (7.6-11.3); Monocytes % 20.9 % (3.3-12.3); Neutrophils % 61.2 % (41.7-73.7); Nucleated Red Blood Cells % 0.1 % (0-0); Platelets 470 thou/uL (152-406); RBC Red Blood Cell Count 3.83 M/uL (3.86-4.86); Red Cell Distribution Width 16.1 % (12.1-15.2)
[2024-02-06 07:18] LABS: Albumin 1.6 g/dL (3.4-5.0); Albumin/Globulin Ratio 0.4 (1.1-1.8); Anion Gap 9.1 mEq/L (5.0-15.0); Bilirubin Total 0.3 mg/dL (0.2-1.0); Globulin 4.5 g/dL (2.3-3.5); Magnesium 1.7 mg/dL (1.6-2.4); Potassium 3.1 mEq/L (3.5-5.1); Protein, Total 6.1 g/dL (6.4-8.2)
[2024-02-06 08:31] LABS: Band Neutrophils 5 % (0-1); Blood Morphology Comment NOT SEEN (NOT SEEN); Differential Total Cells Count 100; Eosinophils 9 % (0-3); Lymphocytes 22 % (15-42); Monocytes 25 % (0-10); Platelet Estimate ADEQ; Reactive Lymphocytes 2 %; Segmented Neutrophils 37 % (40-80); Toxic Granulation PRESENT
[2024-02-06] MEDS: POTASSIUM CL SA 10 MEQ TAB PO ONE ×3 (09:41→16:37)
[2024-02-06] MEDS: MAGNESIUM SULFATE 1 gm IVPB 1 GM/100 ML BAG IV ONE (09:41)
[2024-02-06] MEDS: METRONIDAZOLE 500mg IVPB 500 MG/100 ML BAG IV SCH (09:41)
--- NOTE | 2024-02-06 10:35 | P.PN ---
Subjective Date of Service: 02/06/24 Chief Complaint: Abdominal pain and diarrhea Pt is resting comfortably in bed. She reports diarrhea this am. She has slight wheezing at bedside. Pt is tolerating cefepime and flagyl. No other complaints. Review of Systems General: Unremarkable Eyes: Unremarkable ENT: Unremarkable Respiratory: Unremarkable Cardiovascular: Unremarkable Gastrointestinal: Diarrhea Genitourinary: Unremarkable Musculoskeletal: Unremarkable Integumentary: Unremarkable Neurological: Unremarkable Lymphatics: Unremarkable Physical Examination - Vital Signs Temperature: 97.6 F Blood Pressure: 151/65 Pulse: 84 Respirations: 20 Pulse Ox (%): 88 - Physical Exam General: Alert, In no apparent distress, Oriented x3, Obese HEENT: Atraumatic, Normocephalic, PERRLA Neck: Supple, 2+ carotid pulse no bruit Respiratory: Normal air movement, Expiratory wheezes Cardiovascular: No edema, Normal pulses, Regular rate/rhythm, Normal S1 S2 Capillary refill: <2 Seconds Gastrointestinal: Normal bowel sounds, Soft and benign, Non-distended Musculoskeletal: No clubbing, No swelling Integumentary: No rashes, No breakdown Neurological: Normal gait, Normal speech, Normal strength at 5/5 x4 extr Lymphatics: No axilla or inguinal lymphadenopathy - Studies Laboratory Data (last 24 hrs) 02/05/24 02/05/24 02/05/24 16:33 16:33 16:33 WBC 7.50 Hgb 10.5 L Hct 32.6 L Plt Count 522 H PT 17.4 H INR 1.60 Sodium 138 Potassium 3.3 L BUN 22 H Creatinine 1.21 H Glucose 125 H Magnesium 1.6 Total Bilirubin 0.3 AST 22 ALT 16 Alkaline Phosphatase 101 Lipase 11 L Assessment And Plan - Plan Rectosigmoid colitis and Purulent Vaginal discharge: Will continue cefepime and flagyl. Will f/u blood cx. Pt has unknown vaginal discharge of unknown source. CT abd /pelvis is negative for abscess or cyst. Consulted Gen surgeon. Pt may need examination under anesthesia/dye study to rule out a fistula. Acute resp failure with hypoxia: Pt is wheezing ast bedside. Continue 2L BNC and prn duoneb. Acute kidney injury: Cr is 0.84. Will continue IVF, avoid nephrotoxins and monitor renal function. Hypokalemia: K is 3.1. Will replete and monitor. Hx of functional quadriplegia: Will consulted PT. Continue fall precaution. Morbid obesity: Pt was advised to lose weight. DVT prophylaxis: Heparin SQ. Dispo: Pending hospital course
--- NOTE | 2024-02-06 13:12 | RAD REPORT ---
EXAM DESCRIPTION: CT ABDOMEN PELVIS WITHOUT IV CONTRAST HISTORY: Abdominal pain. COMPARISON: 01/23/2024 TECHNIQUE: CT scan of the abdomen and pelvis was performed without IV contrast. This exam was perfor med according to our departmental dose-optimization program, which includes automated exposure contro l, adjustment of the mA and/or kV according to patient size and/or use of iterative reconstruction te chnique. FINDINGS: The lung bases are clear. No pleural or pericardial effusions. There is a small hiatal her brenda. There has been a prior cholecystectomy and hysterectomy. The liver, spleen, pancreas, adrenal gl ands, and kidneys are unremarkable. No hydronephrosis or urinary stones are seen. Again seen is circumferential wall thickening of the sigmoid colon with surrounding inflammation. No evidence of perforation or abscess. No evidence of bowel obstruction or appendicitis. Stomach is norm al. No intraperitoneal free fluid or free air is seen. There are mild degenerative changes of the spi ne. The aorta is normal caliber and contains atherosclerotic calcifications. IMPRESSION: Unchanged acute sigmoid colitis/enteritis without perforation or abscess. Electronically signed by: Martin Gallagher MD 02/05/2024 05:46 PM CDT Due to temporary technical issues with the PACS/Fluency reporting system, reports are being signed by the in house radiologist without review as a courtesy to ensure prompt reporting. The interpreting r adiologist is fully responsible for the content of the report.
--- NOTE | 2024-02-06 14:15 | EKG ---
Test Date: 2024-02-05 Test Time: 16:16:22 High Climber: HUONG MEASUREMENT RESULTS: Intervals: Rate: 80 ND: 172 QRSD: 112 QT: 384 QTc: 442 [place]: P: 95 ND: 172 QRS: -41 T: 54 INTERPRETIVE STATEMENTS: Normal sinus rhythm Left axis deviation Pulmonary disease pattern Abnormal ECG Compared to ECG 01/23/2024 10:40:28 Junctional rhythm no longer present ST (T wave) deviation no longer present Electronically Signed On 02-06-24 14:13:39 CDT by Quincy Avelar
[2024-02-06 22:49] VITALS: O2SAT 96
[2024-02-07 06:43] LABS: Absolute Eosinophils 0.2 K/uL (0-0.5); Absolute Lymphocytes (CBC) 0.7 K/uL (0.7-4.9); Absolute Monocytes 1.3 K/uL (0.1-1.3); Absolute Neutrophil 3.7 K/uL (1.8-8.0); Basophils % 0.8 % (0-1.3); Eosinophils % 3.7 % (0-4.4); Hematocrit 31.1 % (36.0-45.0); Lymphocytes % 12.4 % (15.3-44.8); MCH 26.5 pg (27.0-35.0); MCHC 32.3 g/dL (32.0-36.0); MPV 6.7 fL (7.6-11.3); Monocytes % 21.6 % (3.3-12.3); Neutrophils % 61.5 % (41.7-73.7); Nucleated Red Blood Cells % 0.1 % (0-0); Platelets 476 thou/uL (152-406); RBC Red Blood Cell Count 3.79 M/uL (3.86-4.86); Red Cell Distribution Width 15.9 % (12.1-15.2)
[2024-02-07 07:03] LABS: Anion Gap 7.6 mEq/L (5.0-15.0); Potassium 3.6 mEq/L (3.5-5.1)
[2024-02-07] MEDS: POTASSIUM CL SA 10 MEQ TAB PO ONE (08:40)
--- NOTE | 2024-02-07 10:38 | P.PN ---
Subjective Date of Service: 02/07/24 Chief Complaint: Abdominal pain and diarrhea Pt is resting comfortably in bed. She is oxygenating well on room air. No wheezing. Pt is tolerating cefepime and flagyl. No other complaints. Review of Systems General: Unremarkable Eyes: Unremarkable ENT: Unremarkable Respiratory: Unremarkable Cardiovascular: Unremarkable Gastrointestinal: Unremarkable Genitourinary: Unremarkable Musculoskeletal: Unremarkable Integumentary: Unremarkable Neurological: Unremarkable Lymphatics: Unremarkable Physical Examination - Vital Signs Temperature: 99.5 F Blood Pressure: 153/52 Pulse: 95 Respirations: 18 Pulse Ox (%): 90 - Physical Exam General: Alert, In no apparent distress, Oriented x3, Obese HEENT: Atraumatic, Normocephalic Neck: Supple, 2+ carotid pulse no bruit, JVD not distended Respiratory: Clear to auscultation bilaterally, Normal air movement Cardiovascular: No edema, Normal pulses, Regular rate/rhythm, Normal S1 S2 Capillary refill: <2 Seconds Gastrointestinal: Normal bowel sounds, Soft and benign, Non-distended Musculoskeletal: No clubbing, No swelling Integumentary: No rashes, No breakdown, No significant lesion Neurological: Normal gait, Normal speech, Normal strength at 5/5 x4 extr Lymphatics: No axilla or inguinal lymphadenopathy Assessment And Plan - Plan Rectosigmoid colitis and Purulent Vaginal discharge: Will continue cefepime and flagyl. Pt has unknown vaginal discharge of unknown source. CT abd /pelvis is negative for abscess or cyst. Consulted Gen surgeon. Pt may need examination under anesthesia/dye study to rule out a fistula. Acute resp failure with hypoxia: resolved. Pt is oxygenating well on room air. Continue prn oxygen and prn duoneb. Acute kidney injury: Cr is 0.61 <- 0.84. Will continue IVF, avoid nephrotoxins and monitor renal function. Hypokalemia: K is 3.6 <- 3.1. Will replete and monitor. Hx of functional quadriplegia: Will consulted PT. Continue fall precaution. Pt is bedbound Morbid obesity: Pt was advised to lose weight. DVT prophylaxis: Heparin SQ. Dispo: Pending hospital course
--- NOTE | 2024-02-07 13:54 | P.CNS ---
Date of Consult: 02/07/24 PC: I was asked to see this 83-year-old female in regards to vaginal discharge and abdominal pain. HPC: Patient was recently in the hospital here with rectosigmoid colitis. She was discharged home. Started having some foul drainage through the vagina. She was admitted for evaluation and treatment. PSHx: Patient apparently has had a previous hysterectomy and received radiation postoperatively. PMHx: Morbid obesity, hypertension Social Hx: Allergic to penicillins Sys R: No cough, wheeze, shortness of breath. No chest pain or palpitations. Says she has been in relatively good health and has been trying to do exercises at home. 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 Plan: This is a complex case for our facility. Would highly recommend transfer to a colorectal surgeon. Have spoken to the hospitalist to give him a name of a possible surgeon in [place].
[2024-02-07] MEDS: MORPHINE 2 MG/ML SYR IV PRN (16:49)
[2024-02-07 21:34] VITALS: BP 119/46; TEMP 98.3
== END 2024-02-07 23:14 | disposition short-term general hospital (02) | DRG 385 ==
LOC: ER 15:38 → ERHOLD 20:16 → 4TH 20:42
PROVIDERS: ADMIT Internal Medicine; ATTEND Hospitalist
DX: K51.30 Ulcerative (chronic) rectosigmoiditis without complications (principal); J96.01 Acute respiratory failure with hypoxia; R53.2 Functional quadriplegia; Z68.43 Body mass index [BMI] 50.0-59.9, adult; N17.9 Acute kidney failure, unspecified; K51.50 Left sided colitis without complications; E66.01 Morbid (severe) obesity due to excess calories; I10 Essential (primary) hypertension; E87.6 Hypokalemia; E03.9 Hypothyroidism, unspecified; E78.00 Pure hypercholesterolemia, unspecified; L05.91 Pilonidal cyst without abscess; I87.2 Venous insufficiency (chronic) (peripheral); N89.8 Other specified noninflammatory disorders of vagina; I87.8 Other specified disorders of veins; Z88.0 Allergy status to penicillin; Z79.82 Long term (current) use of aspirin; Z79.890 Hormone replacement therapy; Z90.49 Acquired absence of other specified parts of digestive tract; Z85.42 Personal history of malignant neoplasm of other parts of uterus; Z90.710 Acquired absence of both cervix and uterus; Z79.899 Other long term (current) drug therapy
CPT/HCPCS: 36415; 51702; 71045; 74176; 80048; 80053; 80076; 81001; 83690; 83735; 83880; 84100; 84132; 84484; 85025; 85610; 87324; 93005; 96361; 96365; 96375; 99285; J0692; J0696; J0744; J1644; J2270; J3475; J7030